=== PATIENT | male | born 1970 | race African-American/Black ===

== ENCOUNTER 2017-06-22 01:06 | Emergency (ER) | payer BC ==
[~2017-06-22 01:06] MED LIST: OXYC1TAB3 PO
[2017-06-22 01:10] VITALS: TEMP 37.2; Ht 177.8 cm
[2017-06-22] MEDS ORDERED: HYDR-5688 PO (01:31)
--- NOTE | 2017-06-22 01:34 | EMERGENCY ROOM VISIT NOTE ---
History First contact with patient: 01:13 Chief Complaint: LEG PAIN,LEG INJURY Stated Complaint: PULLED HAMSTRINGS History of Present Illness The patient is a 46 year old male who presents to the Emergency Room with complaints of possible pulled hamstrings of both legs. The patient states that he was playing kickball this afternoon and was running at home when he developed sudden cramps in both of his legs. He states that the pain was located in the back of the thighs. He states that the pain in the right leg has improved, but the pain in the left leg has worsened. He is unable to walk on the left leg. He denies any previous injuries to the leg. He denies any numbness or weakness. He rates his discomfort an 8/10. He has not taken any medication for the pain. Review of Systems A complete 10 point review of systems was reviewed with the patient with pertinent positives and negatives as per history of present illness. All else were negative. Social History Smoking Status: Never Smoker Current/Historical Medications Scheduled PRN Hydrocodone/Acetaminophen 5MG/325MG (Rialto 5MG/325MG), 1-2 TABLET PO Q4H PRN for Pain Physical Exam Vital Signs Date Time Temp Pulse Resp B/P (MAP) Pulse Ox O2 Delivery O2 Flow Rate FiO2 06/22/17 02:00 70 132/79 97 06/22/17 01:10 37.2 79 18 161/84 97 Room Air Physical Exam VITALS: Vitals are noted on the nurse's note and reviewed by myself. Vital signs stable. GENERAL: This is a 46-year-old male, in no acute distress, nondiaphoretic, well- developed well-nourished. SKIN: There is no edema or ecchymosis. MUSCULOSKELETAL: No obvious deformities. There is tenderness to palpation of the left posterior upper leg at the area of the distal hamstring insertion. Full range of motion of bilateral lower extremities. NEURO: Patient was alert and oriented to person place and time. Normal sensation to light and sharp touch. Medical Decision & Procedures Medical Decision Differential diagnosis includes muscle, torn ligament, avulsion fracture, among others. Patient was evaluated as above. He appears to have stained a left hamstring injury. He has crutches at home and will use these to aid with walking. Conservative measures were discussed with the patient including using ice and anti-inflammatories for pain. He was given orthopedic information for follow- up. He was given a short course of pain medication as the patient states that his pain was very severe. He was advised not to drink or drive with taking this medication. He verbalized understanding of my assessment and treatment plan. He was discharged home in good condition. Medication Reconcilliation Current Medication List: was personally reviewed by me Blood Pressure Screening Patient's blood pressure: Elevated blood pressure Blood pressure disposition: Elevated BP felt to be situational Impression Primary Impression: Left hamstring injury Departure Information Dispostion Home / Self-Care Condition GOOD Prescriptions Hydrocodone/Acetaminophen 5MG/325MG (Rialto 5MG/325MG) Tab 1-2 TABLET PO Q4H Y for Pain, #10 TAB For Initial Treatment Prov: Carri Hernandez, KERLINE 06/22/17 Referrals No Doctor, Assigned (PCP) Devan Mcrae, DO Patient Instructions My [facility] Additional Instructions You have been treated in the Emergency Department for leg pain. You have been prescribed Rialto to be used for pain control. This is a narcotic medication. You cannot drive or consume alcohol while on this medicine. This medicine should only be used for pain that cannot be controlled with over-the- counter pain medicines. For pain control, you can use the following pusp-ody-jdazhuk medicines (if >12 yo): - Regular strength (325mg/tab) Tylenol (acetaminophen) 2 tabs every 4-6 hours as needed. Do not exceed 12 tablets in a 24 hour period. Avoid taking more than 4 grams (4000 mg) of Tylenol per day. This includes any other sources of acetaminophen you may take on a regular basis. - Regular strength (200 mg/tab) Advil (ibuprofen) 1-2 tabs every 4-6 hours as needed. Do not exceed a dose of 3200 mg per day. If this is a recent injury (<24 hrs), ice can be applied to the area of pain for the first 3 days to help decrease pain and inflammation. Ice massages can be performed by freezing water in a paper cup, peeling back the cup to expose the ice and then massaging over the affected area. Use crutches to keep weight off the leg. Follow-up with orthopedics. Call for appointment. Return to the Emergency Department if your current symptoms worsen despite treatment course outlined above. Problem Qualifiers Primary Impression: Left hamstring injury Encounter type: initial encounter Qualified Codes: S76.302A - Unspecified injury of muscle, fascia and tendon of the posterior muscle group at thigh level , left thigh, initial encounter
[2017-06-22] MEDS ORDERED: NORCO 5/325MG HOME PACK PO ONE (01:45)
[2017-06-22 02:00] VITALS: BP 132/79; PULSE 70; O2SAT 97
--- NOTE | 2017-06-22 16:30 | Pharmacy Progress Note ---
ED Pharmacist Counseling Note Date of Service: Jun 22, 2017. Pharmacist from [facility] on [address] called regarding [place] prescription. They stated they had none in stock and I subsequently told them to cancel the prescription. The patient was discharged from the ED with a 24 hours home pack. I called the patient to acquire a new pharmacy to send the prescription to and he stated he doesn't want it filled and he is following up with his ortho physician. No further action was necessary.
== END 2017-06-22 01:55 | disposition home or self-care (01) ==
LOC: C.EDB 01:07
DX: S76.302A Unspecified injury of muscle, fascia and tendon of the posterior muscle group at thigh level, left thigh, initial encounter (principal); Y93.6A Activity, physical games generally associated with school recess, summer camp and children; X50.0XXA Overexertion from strenuous movement or load, initial encounter

== ENCOUNTER 2020-02-07 02:07 | Inpatient (IN) ==
[2020-02-07] MEDS ORDERED: NITROGLYCERIN 2% OINTMENT 30GM TUBE EXT STA (02:19)
[2020-02-07] MEDS ORDERED: FAMOTIDINE 20MG/5ML IV PUSH IV STA (02:19)
--- NOTE | 2020-02-07 02:21 | Emergency Department Note ---
History of Present Illness General Chief complaint: Chest Pain Stated complaint: CHEST PAIN Time Seen by Provider: 02/07/20 02:09 Source: patient Mode of arrival: EMS Limitations: no limitations History of Present Illness Provider complaint: Chest pain Onset (ago): hour(s) 5 Location: chest Radiation: back and neck Severity: moderate Pain Consistency: + constant Current Pain Intensity: 3 Quality: + dull and + constant Relieved By: + other Exacerbated By: + other (Lying flat) Associated symptoms: no cough, no diaphoresis, no nausea/vomiting and no shortness of breath This is a 49-year-old healthy male from home who presents after an episode of chest pain this evening. Patient states chest pain began centrally at around 9 PM. Patient states he felt well and in his usual state of health earlier in the day today. Patient denies any recent change in activity. Patient states he did play golf on Thursday did not experience any pain or discomfort at that time. Patient states only recent complaint has been pain at the right great toe since playing golf, which she attributes to arthritis. No history of gout. No recent trauma. Patient denied any accompanying symptoms including shortness of breath, diaphoresis, nausea or vomiting, or dizziness. Patient states the pain began centrally and then began to move into the right chest and out into the right shoulder. No radiation down into the right upper extremity. He did feel some right posterior shoulder discomfort with this as well and also felt as though the pain was ascending up towards his neck. Patient states lying flat made it worse and he felt improved sitting upright. Patient did not take any medications at home. Patient states he was able to fall asleep from 11 PM to midnight and then when he rolled over the pain suddenly became worse and woke him up. After while of persistent pain and unable to fall back asleep, patient called 911. EMS gave the patient aspirin and nitroglycerin in route. Patient's does state that the nitroglycerin did help, and his pain is now down to a 3. No prior history of similar chest pain. No history of heart problems in him or any family members. Patient denies any recent fevers or chills, cough or cold symptoms. Patient denies any recent contact with a known coronavirus positive individual. Pt seen during a time of high acuity and national emergency pandemic while wearing PPE. 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 and A total of 10 systems reviewed and were otherwise negative Physical Exam Vital Signs Vital Signs - 24 hr 02/07/20 02:09 02/07/20 02:30 02/07/20 03:00 Temperature 37.2 C Temperature Source Oral Pulse Rate 68 64 68 Pulse Rate from SpO2 Sensor 64 70 Pulse Rhythm Regular Pulse Strength Normal Respiratory Rate 18 20 20 Respiratory Effort / Characteristics Non-Labored Spontaneous Respiratory Depth Normal Respiratory Pattern Regular Blood Pressure 151/91 H 158/86 H 148/82 H Blood Pressure Mean 111 102 104 Blood Pressure Position Lying Pulse Oximetry 97 98 98 Oxygen Delivery Method Room Air Sepsis Recent Fever Within 48 Hours No Sepsis New/Unexplained Change in Mental Status No Sepsis Action Taken by Nursing No Action Required 02/07/20 03:30 Temperature Temperature Source Pulse Rate 71 Pulse Rate from SpO2 Sensor 70 Pulse Rhythm Pulse Strength Respiratory Rate 22 Respiratory Effort / Characteristics Respiratory Depth Respiratory Pattern Blood Pressure 155/88 H Blood Pressure Mean 102 Blood Pressure Position Pulse Oximetry 97 Oxygen Delivery Method Sepsis Recent Fever Within 48 Hours Sepsis New/Unexplained Change in Mental Status Sepsis Action Taken by Nursing GENERAL: alert, well appearing, well nourished, no distress, non-toxic EYE EXAM: normal conjunctiva, PERRL and EOM's grossly intact OROPHARYNX: no exudate, no erythema, lips, buccal mucosa, and tongue normal and mucous membranes are moist NECK: supple, no nuchal rigidity, no adenopathy, non-tender LUNGS: Clear to auscultation. Normal chest wall mechanics, no w/r/r HEART: no murmurs, S1 normal and S2 normal, mild reproducible chest wall tenderness with palpation over sternum and right chest ABDOMEN: abdomen soft, non-tender, normo-active bowel sounds, no masses, no rebound or guarding. BACK: Back is symmetrical on inspection and there is no deformity, no midline tenderness, no CVA tenderness. SKIN: no rashes and no bruising, no petechiae UPPER EXTREMITIES: upper extremities are grossly normal. FROM, nml pulses b/l. LOWER EXTREMITIES: No pitting edema. FROM, nml pulses b/l. Mild edema noted to right great toe, no erythema or increased warmth, no pain with palpation of the MTP, normal cap refill, no evidence of trauma or deformity NEURO EXAM: Normal sensorium, cranial nerves II-XII grossly intact, normal speech, no gross weakness of arms, no gross weakness of legs. Gross sensation intact. Course Course 301: Pt updated on all results. updated per request via the phone. Pt states only mild discomfort at this time, wouldn't qualify it as pain. VSS. Administered Medications Heparin Sodium/Dextrose (Heparin Sodium/Dextrose) 25,000 units in 500 mls @ 0.02 mls/hr IV .Q24H [facility]; Protocol Stop: 03/08/20 03:29 Last Admin: 02/07/20 04:11 Dose: 1,000 units/hr, 20 mls/hr Documented by: [id number] Cosigned by: [id number] Discontinued Medications Famotidine (Pepcid 20mg Iv Push) 20 mg IV ONE STA Stop: 02/07/20 02:20 Last Admin: 02/07/20 02:51 Dose: 20 mg Documented by: [id number] Heparin Sodium (Porcine) (Heparin Sodium (Porcine)) Confirm Administered Dose 5,000 units .ROUTE .STK-MED ONE Stop: 02/07/20 03:35 Last Admin: 02/07/20 04:10 Dose: 4,000 units Documented by: [id number] Cosigned by: [id number] Morphine Sulfate (Morphine Sulfate) 2 mg IV NOW STA Stop: 02/07/20 03:13 Last Admin: 02/07/20 03:21 Dose: Not Given Documented by: [id number] Nitroglycerin (Nitro-Bid 2%) 1 inch EXT NOW STA Stop: 02/07/20 02:20 Last Admin: 02/07/20 02:51 Dose: 1 inch Documented by: [id number] Critical Care Time Critical Care Time: Yes Total Critical Care Time: 38 Critical care of 38 min performed to assess and manage high likelihood of life- threatening ACS, involving labs/imaging/ekg performed with assessment to evaluate NSTEMI diagnosis with frequent reassessment. This time includes bedside time, treatment discussions with patient/family/consultants, documentation time and excludes procedure time. Medical Decision Making Differential Diagnosis Differential diagnoses includes but is not limited to acute coronary syndrome, myocardial infarction, pericarditis, pulmonary embolus, aortic dissection, pneumonia, pneumothorax, musculoskeletal, shingles, esophageal. Medical Records Attestation: I reviewed the patient's medical records. Home Medications Current Medication List: was personally reviewed by me Laboratory Data Attestation: I reviewed the patient's lab results. Result diagrams: 02/07/20 02:21 02/07/20 02:21 Lab Results 02/07/20 02/07/20 02/07/20 Range/Units 02:21 02:21 02:21 WBC 9.84 (4.8-10.8) K/uL RBC 4.84 (4.7-6.1) M/uL Hgb 15.0 (14.0-18.0) g/dL Hct 43.5 (42-52) % MCV 89.9 (80-100) fL MCH 31.0 (25-34) pg MCHC 34.5 (32-36) g/dL RDW Std Deviation 41.6 (36.4-46.3) fL RDW Coeff of Joesph 12.8 (11.5-14.5) % Plt Count 303 (130-400) K/uL MPV 10.1 (7.4-10.4) fL Immature Gran % (Auto) 0.3 % Neut % (Auto) 62.1 % Lymph % (Auto) 28.3 % Mcdonough % (Auto) 7.1 % Eos % (Auto) 2.0 % Baso % (Auto) 0.2 % Immature Gran # (Auto) 0.03 H (0.00-0.02) K/uL Neut # (Auto) 6.11 (1.4-6.5) K/uL Lymph # (Auto) 2.78 (1.2-3.4) K/uL Mcdonough # (Auto) 0.70 H (0.11-0.59) K/uL Eos # (Auto) 0.20 (0-0.5) K/uL Baso # (Auto) 0.02 (0-0.2) K/uL D-Dimer 310 (0-500) ug/L FEU Sodium 141 (136-145) mmol/L Potassium 3.7 (3.5-5.1) mmol/L Chloride 107 (98-107) mmol/L Carbon Dioxide 26 (21-32) mmol/L Anion Gap 8.0 (3-11) BUN 11 (7-18) mg/dl Creatinine 1.26 (0.6-1.4) mg/dl Est Cr Clr Drug Dosing 101.3 ml/min Est GFR ( Amer) 77.7 Est GFR (Non-Af Amer) 67.0 BUN/Creatinine Ratio 8.9 L (10-20) Glucose 160 H (70-99) mg/dl Calcium 8.2 L (8.5-10.1) mg/dl Magnesium 2.1 (1.8-2.4) mg/dl Total Bilirubin 0.4 (0.2-1) mg/dl AST 45 H (15-37) U/L ALT 121 H (12-78) U/L Alkaline Phosphatase 34 L (45-117) U/L Troponin I 0.597 H* (0-0.045) ng/ml NT-Pro-B Natriuret Pep 25 (0-450) pg/ml Total Protein 7.3 (6.4-8.2) gm/dl Albumin 3.6 (3.4-5.0) gm/dl Globulin 3.7 (2.5-4.0) gm/dl Albumin/Globulin Ratio 1.0 (0.9-2) Lipase 107 (73-393) U/L Imaging Data Attestation: I personally reviewed and interpreted this imaging study as follows: My Impression: X-ray: I interpreted the following studies. Chest: A single view study of the chest was reviewed and was negative for cardiomegaly, focal infiltrate, effusion, pulmonary edema, or wide mediastinum. ECG Data Attestation: I personally reviewed and interpreted this ECG as follows: Indication: + chest pain Rate (beats per minute): 66 Rhythm: + normal sinus ECG Intervals/blocks: + Normal QRS and + Normal QT ECG Cobb: + Normal ECG ST segments: + ST depression (V4-6) Comparison ECG Date: no prior available Blood Pressure Blood Pressure Findings: Elevated blood pressure Blood Pressure Disposition: further management by hospitalist TAWNYA Godoy An order was placed for continuous cardiac monitoring. The monitor shows a rate of 70 with normal sinus rhythm. Patient presenting due to episode of chest discomfort radiating into the right shoulder. No prior history and no known history of cardiac risk factors in him or any family members. Patient's pain was improved after EMS gave him nitroglycerin. Additional nitro paste was applied here and patient felt improved. Vital signs were stable throughout. No ectopy or dysrhythmia noted on telemetry. Patient with very subtle ST depression noted in V4 through V6 on EKG, no ST elevation. Patient already given aspirin by EMS in addition. Patient given additional Pepcid here as a precaution. Patient's other labs reassuring with the exception of an elevated troponin. Patient had no worsening or other evolving symptoms in the emergency department. He and his were made aware of all results and were in agreement with plan for additional inpatient monitoring and treatment. Case discussed with hospitalist. Heparin drip ordered. D-dimer negative and chest x-ray otherwise reassuring. I do not suspect CHF, PE, effusion, or pneumonia. Impression & Plan Acute non-ST elevation myocardial infarction (NSTEMI), Chest pain, Hyperglycemia, Hypertension Discharge Plan Visit Data *Final* Discharge Date/Time: 02/07/20 04:18 Chief Complaint: Chest Pain Stated Complaint: CHEST PAIN ED Provider: Trena Espinoza Discharge Problem: Acute non-ST elevation myocardial infarction (NSTEMI), Chest pain, Hyperglycemia, Hypertension Patient Disposition: Admitted As Inpatient Discharge Instructions Interventions: ED Discharge Assessment Last Done: 02/07/20 04:18 Discharge Problem: Chest pain Qualifiers: Chest pain type: chest pain due to myocardial ischemia Ischemic chest pain type: unspecified angina pectoris type Qualified Code(s): I25.9 - Chronic ischemic heart disease, unspecified Hypertension Qualifiers: Hypertension type: unspecified Qualified Code(s): I10 - Essential (primary) hypertension
[2020-02-07 02:33] LABS: Basophils # (auto) 0.02 K/uL (0-0.2); Basophils % (auto) 0.2 %; Hematocrit (blood only) 43.5 % (42-52); Immature Granulocytes # (auto) 0.03 K/uL (0.00-0.02); Immature Granulocytes % (auto) 0.3 %; Lymphocytes # (auto) 2.78 K/uL (1.2-3.4); Lymphocytes % (auto) 28.3 %; Mean Corpuscular Hgb Conc 34.5 g/dL (32-36); Mean Corpuscular Volume 89.9 fL (80-100); Mean Platelet Volume 10.1 fL (7.4-10.4); Monocytes % (auto) 7.1 %; Neutrophils # (auto) 6.11 K/uL (1.4-6.5); Neutrophils % (auto) 62.1 %; Platelet Count 303 K/uL (130-400); RDW Coefficient of Variation 12.8 % (11.5-14.5); RDW Standard Deviation 41.6 fL (36.4-46.3); Red Blood Count 4.84 M/uL (4.7-6.1); White Blood Count 9.84 K/uL (4.8-10.8)
[2020-02-07 02:51] LABS: Albumin Level 3.6 gm/dl (3.4-5.0); BUN Creatinine Ratio 8.9 (10-20); Calcium 8.2 mg/dl (8.5-10.1); Creatinine Clr Calc Pharmacy 101.3 ml/min; Est GFR (African American) 77.7; Magnesium 2.1 mg/dl (1.8-2.4); Potassium 3.7 mmol/L (3.5-5.1)
[2020-02-07 02:55] LABS: D Dimer 310 ug/L FEU (0-500)
[2020-02-07 03:00] LABS: Bilirubin,Total 0.4 mg/dl (0.2-1); Globulin 3.7 gm/dl (2.5-4.0); Total Protein 7.3 gm/dl (6.4-8.2); Troponin I 0.597 ng/ml (0-0.045)
[2020-02-07] MEDS ORDERED: MoRPHine SULFATE 2 MG/ML CARP IV STA (03:12)
[2020-02-07] MEDS ORDERED: Heparin IV Low Dose WITH Bolus STA (03:20)
[2020-02-07] MEDS ORDERED: HEPARIN SODIUM/DEXTROSE 25,000 UNITS/500 ML BAG IV SCH (03:30)
[2020-02-07] MEDS ORDERED: HEPARIN SOD 5,000 UNIT/0.5 ML VIAL ONE (03:34)
[2020-02-07] MEDS ORDERED: ACETAMINOPHEN 325 MG TAB PO PRN (03:43)
[2020-02-07] MEDS ORDERED: ONDANSETRON INJ 2 MG/ML 2 ML VIAL IV PRN (03:43)
[2020-02-07] MEDS ORDERED: MoRPHine SULFATE 2 MG/ML CARP IV PRN (03:43)
[2020-02-07] MEDS ORDERED: NITROGLYCERIN SL 0.4 MG/TAB TAB SL PRN ×2 (03:43→13:12)
--- NOTE | 2020-02-07 03:58 | History & Physical Report ---
Date of Service February 07, 2020 Assessment & Plan (1) Elevated troponin: Otherwise healthy 49-year-old man with no past medical history who presented to the emergency department for new onset chest pain and was found to have an elevated troponin of 0.597. 1) Elevated Troponin in setting of acute chest pain - EKG normal, low concern for acute STEMI - received heparin bolus in ED - BMP normal, d-dimer negative - initial Troponin I of 0.597. Repeats ordered for 10 am and 6 pm. - calcium borderline low at 8.2, mag normal at 2.1 - daily EKG, ASA 81 in AM - cardiology consulted - no family hx cardiac disease, no personal hx of HTN or DM2. Patient is low risk for ACS. - pericarditis/myocarditis less likely with normal CBC, lack of URI sx, lack of pericardial rub or positional pain, recent use of diclofenac BID for toe pain - lipid panel, A1c ordered for AM 2) Elevated Liver Transaminases - ALT 121, AST 45, Alk Phos 34 - incidental finding; doesn't follow alcoholic hepatitis pattern, possible nonalcoholic fatty liver disease. - unlikely Hepatitis B or C with this transaminitis pattern and no hx IVDU - follow up outpatient with PCP DVT ppx: not indicated FEN/GI: NPO with sips/ice chips Code Status: Full Code Dispo: PCU (2) Chest pain: History of Present Illness Patient is a 49-year-old male with no past medical history presenting to the emergency department this morning for acute onset chest pain. He states that approximately 10 PM last night he started to have some right-sided chest pain that radiated into his right neck and down his right arm. He thought that it was related to his back felt better after getting a massage and was able to go to sleep. At approximately 1 in the morning he rolled from his left to his right side in bed and found the chest pain to get excruciatingly worse to a 10 out of 10. Pain did not resolve on its own and at that point his called 911 for an ambulance. In the ambulance he received a nitro tab which he said helped bring the pain from a 10 out of 10 to a 6 out of 10. He describes the pain as a tight pressure in his chest that was squeezing his chest without radiation. He denies any blurry vision, headache, nausea, stomach pain that was occurring concurrently with the chest pain symptoms. He denies any recent URI symptoms, fevers, chills, sick contacts. He notes that he went golfing on Thursday and walked 9 miles without any shortness of breath or chest pain with the exertion. He has never had any episodes like this previously denies any family history of heart attack, stroke, heart failure, hypertension, diabetes. He de nies having ever smoked or having ever used any IV drugs. He states that his alcohol use is sporadic but probably averages to a couple of beers 3 times a month. 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 Social History Preferred Language: Norwegian Communication Ability: Effective Beliefs That Will Affect Care: None marital status: Current Living Situation: Spouse current occupational status: employed Other Information That Helps Us Care for You: No Feels Safe at Home: Yes Smoking Status: Never smoker Hx Alcohol Use: Yes Alcohol type: beer Hx Substance Use: No Review of Systems Constitutional: no fever, no chills, no fatigue and no weakness Eyes: no eye pain and no worsening vision Respiratory: no cough, no dyspnea, no dyspnea on exertion and no pain on inspiration Cardiovascular: + chest pain; no chest pain with activity, no radiating jaw, neck or arm pain, no dyspnea at rest, no palpitations and no lightheadedness Gastrointestinal: no heartburn, no nausea, no vomiting, no change in stools, no constipation and no diarrhea/loose stools Neurologic: + headache(s); no dizziness Physical Exam Constitutional: well developed, well nourished and + obese; no acute distress Eyes: PERRL, conjunctivae normal, anicteric sclerae ENMT: external ear and nose normal, oropharynx normal Respiratory: normal respiratory effort, lungs clear to auscultation normal respiratory effort; no respiratory distress Auscultation: no crackles, no rales, no rhonchi and no wheezes Cardiovascular: RRR, no murmur, no edema Heart Sounds: no gallop and no murmur Extremities: normal capillary refill; no edema Gastrointestinal (Abdomen): Inspection/Auscultation: abdomen normal to inspection; abdomen not distended Percussion/Palpation: abdomen soft; abdomen nontender Skin: no rashes, warm and dry Results & Data Results & Data ([facility]) Vital Signs (Past 12 Hours) Vital Signs Temp Pulse Resp BP Pulse Ox 02/07/20 02:09 37.2 C 68 18 151/91 H 97 Laboratory Results WBC 9.84 K/uL (4.8-10.8) 02/07/20 02:21 RBC 4.84 M/uL (4.7-6.1) 02/07/20 02:21 Hgb 15.0 g/dL (14.0-18.0) 02/07/20 02:21 Hct 43.5 % (42-52) 02/07/20 02:21 MCV 89.9 fL (80-100) 02/07/20 02:21 MCH 31.0 pg (25-34) 02/07/20 02:21 MCHC 34.5 g/dL (32-36) 02/07/20 02:21 RDW Std Deviation 41.6 fL (36.4-46.3) 02/07/20 02:21 RDW Coeff of Joesph 12.8 % (11.5-14.5) 02/07/20 02:21 Plt Count 303 K/uL (130-400) 02/07/20 02:21 MPV 10.1 fL (7.4-10.4) 02/07/20 02:21 Immature Gran % (Auto) 0.3 % 02/07/20 02:21 Neut % (Auto) 62.1 % 02/07/20 02:21 Lymph % (Auto) 28.3 % 02/07/20 02:21 [place] % (Auto) 7.1 % 02/07/20 02:21 Eos % (Auto) 2.0 % 02/07/20 02:21 Baso % (Auto) 0.2 % 02/07/20 02:21 Immature Gran # (Auto) 0.03 K/uL (0.00-0.02) H 02/07/20 02:21 Neut # (Auto) 6.11 K/uL (1.4-6.5) 02/07/20 02:21 Lymph # (Auto) 2.78 K/uL (1.2-3.4) 02/07/20 02:21 [place] # (Auto) 0.70 K/uL (0.11-0.59) H 02/07/20 02:21 Eos # (Auto) 0.20 K/uL (0-0.5) 02/07/20 02:21 Baso # (Auto) 0.02 K/uL (0-0.2) 02/07/20 02:21 D-Dimer 310 ug/L FEU (0-500) 02/07/20 02:21 Sodium 141 mmol/L (136-145) 02/07/20 02:21 Potassium 3.7 mmol/L (3.5-5.1) 02/07/20 02:21 Chloride 107 mmol/L (98-107) 02/07/20 02:21 Carbon Dioxide 26 mmol/L (21-32) 02/07/20 02:21 Anion Gap 8.0 (3-11) 02/07/20 02:21 BUN 11 mg/dl (7-18) 02/07/20 02:21 Creatinine 1.26 mg/dl (0.6-1.4) 02/07/20 02:21 Est Cr Clr Drug Dosing 101.3 ml/min 02/07/20 02:21 Est GFR ( Amer) 77.7 02/07/20 02:21 Est GFR (Non-Af Amer) 67.0 02/07/20 02:21 BUN/Creatinine Ratio 8.9 (10-20) L 02/07/20 02:21 Glucose 160 mg/dl (70-99) H 02/07/20 02:21 Calcium 8.2 mg/dl (8.5-10.1) L 02/07/20 02:21 Magnesium 2.1 mg/dl (1.8-2.4) 02/07/20 02:21 Total Bilirubin 0.4 mg/dl (0.2-1) 02/07/20 02:21 AST 45 U/L (15-37) H 02/07/20 02:21 ALT 121 U/L (12-78) H 02/07/20 02:21 Alkaline Phosphatase 34 U/L (45-117) L 02/07/20 02:21 Troponin I 0.597 ng/ml (0-0.045) H* 02/07/20 02:21 NT-Pro-B Natriuret Pep 25 pg/ml (0-450) 02/07/20 02:21 Total Protein 7.3 gm/dl (6.4-8.2) 02/07/20 02:21 Albumin 3.6 gm/dl (3.4-5.0) 02/07/20 02:21 Globulin 3.7 gm/dl (2.5-4.0) 02/07/20 02:21 Albumin/Globulin Ratio 1.0 (0.9-2) 02/07/20 02:21 Lipase 107 U/L (73-393) 02/07/20 02:21 Supervising Physician Co-Signing Physician Notes Attending addendum: I have physically seen this patient, have supervised the medical residents activities, and agree with the H&P unless as otherwise noted. Assessment and Plan: Non-STEMI- The patient will be admitted to telemetry for serial cardiac enzymes, serial EKG's, cardiac rhythm monitoring and a 2-D echocardiogram with Dopplers. Heparin drip standard concentration per protocol. Aspirin 81 mg daily, verify received 324 in ED. Tobacco use history. Over risk factors include obesity, tobacco use, and recent more sedentary lifestyle due to COVID pandemic. Order a fasting lipid panel and hemoglobin A1c for risk stratification. Consult cardiology. Abnormal LFTs- Follow-up ultrasound. Most likely AGUILAR or NAFLD. Repeat laboratories in a.m. Remainder of orders and notations as noted. Resident Activity Tracking Resident Involvement: Resident Care Provided Care Provided: Adult Hospital Medicine
[2020-02-07 05:50] LABS: Partial Thromboplastin Time 27.6 Seconds (21.0-31.0); Prothrombin Time 10.8 Seconds (9.0-12.0)
--- NOTE | 2020-02-07 06:58 | XRay Report ---
XR chest 1V portable CLINICAL HISTORY: 49 years-old Male presenting with midsternal chest pain. TECHNIQUE: Portable upright AP view of the chest was obtained. COMPARISON: None. FINDINGS: Cardiomediastinal silhouette normal. No focal opacity. No large effusion or pneumothorax. Degenerativ e changes of the thoracic spine. Upper abdomen normal. IMPRESSION: 1. No acute cardiopulmonary disease. ACT 112: Negative or not required by law. Electronically signed by: Polo Mancini M.D. 02/07/2020 6:56 AM
[2020-02-07] MEDS: ASPIRIN 81 MG ECTAB PO SCH (08:16)
[2020-02-07 08:54] LABS: Estimated Average Glucose 108 mg/dl; Hemoglobin A1C 5.4 % (4.5-5.6)
[2020-02-07 10:25] LABS: Partial Thromboplastin Ratio 1.3; Partial Thromboplastin Time 35.6 Seconds (21.0-31.0)
[2020-02-07] MEDS ORDERED: PERFLUTREN LIPID MICROSPHERE (DEFINITY) IV ONE (10:57)
--- NOTE | 2020-02-07 11:06 | Cardiology Consultation ---
Date of Consultation February 07, 2020 Assessment & Plan (1) Acute non-ST elevation myocardial infarction (NSTEMI): (2) Hypertension: ASSESSMENT/PLAN: 1. Acute NSTEMI: Currently, no angina. Troponin up to 3.35 but not yet peaked. Echocardiogram ordered to be done prior to cardiac catheterization. Cardiac catheterization recommended. Risks and benefits discussed with him. He was made aware that CT surgery is not available at this facility. He was agreeable to undergo diagnostic cardiac catheterization and PCI, if deemed appropriate. Continue aspirin 81 mg daily. Continue heparin drip. Transaminase levels are slightly elevated but would recommend high-intensity statin therapy. Lipitor 40 mg once daily initiated at this time. Metoprolol 25 mg twice daily ordered. Will also consider BALDO-inhibitor to be started tomorrow if blood pressure okay. 2. Hypertension: No formal diagnosis of hypertension blood pressure has been mostly elevated here. Beta-taras as above. Would also recommend BALDO- inhibitor during this hospitalization if blood pressure can tolerate. 3. Disposition: Cardiac catheterization recommended to be done today. Recommend cardiac rehab on discharge. Cardiology will continue to follow. Dr. Lyons made aware of current plan. Highly complex medical issues. Thank you for allowing me to participate in the care of your patient. Please call for any other questions or concerns. Sincerely, Nelson Guzmán M.D. History of Present Illness Reason for Consultation: NSTEMI Requesting Physician: Dr. Dumont Attending Physician: David Lyons DO History of Present Illness Mr. Hill is a very pleasant 49-year-old gentleman without significant past medical history who presented to [facility] due to chest discomfort. He was admitted on 02/07/2020. He describes himself as active and had been exercising up until the momin virus pandemic. He did play golf 2 days ago and he walks while doing such. He was completely asymptomatic during this activity. Then last night while laying in bed at approximately 9:00 p.m., he developed substernal chest pressure that persisted for approximately 2 hours. He eventually fell asleep only to wake up at 12:17 a.m. with the same chest discomfort. It felt as though someone was pushing on his chest. It radiated to his neck, jaw, and somewhat into his right shoulder. There is no associated shortness of breath or diaphoresis his called EMS and he received nitroglycerin in route to the hospital. This helped improve his pain. The pain eventually resolved in the emergency department and has not recurred. He denies shortness of breath, syncope, near-syncope, palpitations, edema, or bleeding such as melena, hematochezia, or hematuria. He had not experienced any symptoms like this in the past. His reports that on Thursday and Thursday he seemed more tired. He thinks that he was more bored. He had no anginal symptoms those days. He is currently asymptomatic without chest discomfort. He was seen earlier this morning. Review of systems: As above. Review of systems otherwise negative/unremarkable. Family history: No known premature CAD. Social history: He denies smoking. Occasional alcohol. No drugs. He lives at home with his , Ms. Luis, and 2 daughters. 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 He is originally from the [place] [facility]. He is unaccompanied. 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 Alert and oriented. HEENT: Anicteric sclera. Neck: No JVD. No bruits. Normal carotid upstrokes bilaterally. Cardiac: PMI was nondisplaced. No ventricular heave. Regular rate and rhythm. Normal S1-S2. No murmurs, rubs, or gallops. Pulmonary: Clear to auscultation bilaterally without wheezes, rales, or rhonchi. Abdomen: Soft, nontender, nondistended, with normoactive bowel sounds. No bruits noted. Extremities: 2+ radial pulses bilaterally. 2+ right femoral pulse without bruit. 2+ posterior tibialis pulses bilaterally. No edema or cyanosis. Psychiatric: Affect appears appropriate. Chest: Nontender to palpation. Results & Data ([facility]) Vital Signs (Past 12 Hours) Vital Signs Temp Pulse Pulse Resp BP BP Pulse Ox 02/07/20 10:30 70 20 114/67 95 02/07/20 09:32 65 02/07/20 07:43 36.6 C 68 20 108/65 96 02/07/20 05:23 67 02/07/20 05:00 36.7 C 64 18 164/90 H 99 02/07/20 04:00 68 19 134/83 96 02/07/20 03:30 71 22 155/88 H 97 02/07/20 03:00 68 20 148/82 H 98 02/07/20 02:30 64 20 158/86 H 98 02/07/20 02:09 37.2 C 68 18 151/91 H 97 Laboratory Results Laboratory Results - last 24 hr 02/07/20 02/07/20 02/07/20 02:21 02:21 02:21 WBC 9.84 RBC 4.84 Hgb 15.0 Hct 43.5 MCV 89.9 MCH 31.0 MCHC 34.5 RDW Std Deviation 41.6 RDW Coeff of Joesph 12.8 Plt Count 303 MPV 10.1 Immature Gran % (Auto) 0.3 Neut % (Auto) 62.1 Lymph % (Auto) 28.3 [place] % (Auto) 7.1 Eos % (Auto) 2.0 Baso % (Auto) 0.2 Immature Gran # (Auto) 0.03 H Neut # (Auto) 6.11 Lymph # (Auto) 2.78 [place] # (Auto) 0.70 H Eos # (Auto) 0.20 Baso # (Auto) 0.02 PT INR APTT PTT Ratio D-Dimer 310 Sodium 141 Potassium 3.7 Chloride 107 Carbon Dioxide 26 Anion Gap 8.0 BUN 11 Creatinine 1.26 Est Cr Clr Drug Dosing 101.3 Est GFR ( Amer) 77.7 Est GFR (Non-Af Amer) 67.0 BUN/Creatinine Ratio 8.9 L Glucose 160 H Estimat Average Glucose Hemoglobin A1c Calcium 8.2 L Magnesium 2.1 Total Bilirubin 0.4 AST 45 H ALT 121 H Alkaline Phosphatase 34 L Troponin I 0.597 H* NT-Pro-B Natriuret Pep 25 Total Protein 7.3 Albumin 3.6 Globulin 3.7 Albumin/Globulin Ratio 1.0 Lipase 107 02/07/20 02/07/20 02/07/20 02:21 05:29 10:05 WBC RBC Hgb Hct MCV MCH MCHC RDW Std Deviation RDW Coeff of Joesph Plt Count MPV Immature Gran % (Auto) Neut % (Auto) Lymph % (Auto) [place] % (Auto) Eos % (Auto) Baso % (Auto) Immature Gran # (Auto) Neut # (Auto) Lymph # (Auto) [place] # (Auto) Eos # (Auto) Baso # (Auto) PT 10.8 INR 1.0 APTT 27.6 PTT Ratio 1.0 D-Dimer Sodium Potassium Chloride Carbon Dioxide Anion Gap BUN Creatinine Est Cr Clr Drug Dosing Est GFR ( Amer) Est GFR (Non-Af Amer) BUN/Creatinine Ratio Glucose Estimat Average Glucose 108 Hemoglobin A1c 5.4 Calcium Magnesium Total Bilirubin AST ALT Alkaline Phosphatase Troponin I 3.350 H* NT-Pro-B Natriuret Pep Total Protein Albumin Globulin Albumin/Globulin Ratio Lipase 02/07/20 10:05 WBC RBC Hgb Hct MCV MCH MCHC RDW Std Deviation RDW Coeff of Joesph Plt Count MPV Immature Gran % (Auto) Neut % (Auto) Lymph % (Auto) [place] % (Auto) Eos % (Auto) Baso % (Auto) Immature Gran # (Auto) Neut # (Auto) Lymph # (Auto) [place] # (Auto) Eos # (Auto) Baso # (Auto) PT INR APTT 35.6 H PTT Ratio 1.3 D-Dimer Sodium Potassium Chloride Carbon Dioxide Anion Gap BUN Creatinine Est Cr Clr Drug Dosing Est GFR ( Amer) Est GFR (Non-Af Amer) BUN/Creatinine Ratio Glucose Estimat Average Glucose Hemoglobin A1c Calcium Magnesium Total Bilirubin AST ALT Alkaline Phosphatase Troponin I NT-Pro-B Natriuret Pep Total Protein Albumin Globulin Albumin/Globulin Ratio Lipase Diagnostic Findings Telemetry personally reviewed: Sinus rhythm. No arrhythmia. ECGs personally reviewed: ECG 02/07/2020 at 2:10 a.m.: NSR [address] abnormality in the anterolateral leads. ECG 02/07/2020 at 8:06 a.m.: NSR 66 bpm. Nonspecific T-wave abnormality in the anterolateral leads. Chest x-ray 02/07/2020: No acute cardiopulmonary process per Radiology. Medications Administered Current Inpatient Medications Acetaminophen (Tylenol) 650 mg PO Q4H PRN PRN Reason: Pain or Fever Stop: 03/08/20 03:42 Last Admin: 02/07/20 08:18 Dose: 650 mg Documented by: Aspirin (Ecotrin Ectab) 81 mg PO QAM [facility] Stop: 03/08/20 08:59 Last Admin: 02/07/20 08:16 Dose: 81 mg Documented by: Heparin Sodium/Dextrose () 1 ea IV Q15M [facility] Stop: 02/07/20 14:15 Heparin Sodium/Dextrose (Heparin Sodium/Dextrose) 25,000 units in 500 mls @ 20 mls/hr IV .Q24H [facility]; Protocol Stop: 03/08/20 03:29 Last Titration: 02/07/20 06:53 Dose: 1,000 units/hr, 20 mls/hr Documented by: Morphine Sulfate (Morphine Sulfate) 2 mg IV Q30M PRN PRN Reason: Chest Pain Stop: 02/21/20 03:42 Nitroglycerin (Nitrostat) 0.4 mg SL UD PRN PRN Reason: Chest Pain Stop: 03/08/20 03:42 Ondansetron HCl (Zofran) 4 mg IV Q6H PRN PRN Reason: Nausea Stop: 03/08/20 03:42 PG Care Time/CCT Total # of Minutes Spent Total Time Spent with Patient: Total time spent is greater than 50% in coordination of care (as documented) at patient's floor/unit and/or counseling patient: Coding Level of Care Code 29456 Inpt Consult Level 5 Diagnoses Acute non-ST elevation myocardial infarction (NSTEMI) I21.4 Hypertension I10 Hypertension type: unspecified (1) Hypertension Hypertension type: unspecified Qualified Code(s): I10 - Essential (primary) hypertension
--- NOTE | 2020-02-07 11:09 | Pre Anesthesia Assessment ---
Date of Service February 07, 2020 Pre Sedation Assessment Vital Signs Temp Pulse Pulse Resp BP BP Pulse Ox 02/07/20 10:30 70 20 114/67 95 02/07/20 09:32 65 02/07/20 07:43 36.6 C 68 20 108/65 96 02/07/20 05:23 67 02/07/20 05:00 36.7 C 64 18 164/90 H 99 02/07/20 04:00 68 19 134/83 96 02/07/20 03:30 71 22 155/88 H 97 02/07/20 03:00 68 20 148/82 H 98 02/07/20 02:30 64 20 158/86 H 98 02/07/20 02:09 37.2 C 68 18 151/91 H 97 Cardiovascular RRR, no murmur, no edema Respiratory normal respiratory effort, lungs clear to auscultation Pre-Sedation Airway Assessment Smoking Status: Never smoker Hx Sleep Apnea: No Short, Thick Neck: No Thyromental Distance: > or= 3.5 Finger Breadths Oral Cavity: + WNL Mallampati Class: II ASA: ASA3 NPO Status Date of Last Intake of Fluids: 02/07/20 Time of Last Intake of Fluids: 07:00 Date of Last Intake of Solid Food: 02/06/20 Time of Last Intake of Solid Foods: 19:00 Procedure Planning Contraindications for Sedation: none Current Medications Reviewed: Yes Notes The planned sedation has been discussed with the patient. Informed Consent was obtained. I have identified the patient, determined the appropriateness of sedation and have assessed the patient immediately prior to the procedure. All medicine(s) and interventions are by my order.
[2020-02-07] MEDS ORDERED: fentaNYL citrate 100 MCG/2 ML VIAL ONE ×2 (11:10→12:41)
[2020-02-07] MEDS ORDERED: NiCARDipine HCL INJ 2.5 MG/ML 10 ML AMP ONE (11:10)
[2020-02-07] MEDS ORDERED: MIDAZOLAM HCL 1 MG/ML 2ML VIAL ONE ×3 (11:10→12:41)
[2020-02-07] MEDS ORDERED: HEPARIN (PORCINE) 1000 UNIT/ML 10 ML (CATH LAB USE ONLY) ONE ×2 (11:10→12:23)
[2020-02-07] MEDS ORDERED: NITROGLYCERIN/D5W 100MCG/ML 20ML SYR ONE (11:11)
--- NOTE | 2020-02-07 12:17 | Cardiac Catheterization ---
[facility] Data: Stick Roller Cardiac Status Clinical evaluation leading to the procedure CAD Presenation: Non STEMI Anginal Classification: CCS IV Heart Failure: No Cardiogenic Shock within 24 Hours: No Cardiac Arrest within 24 Hours: No Imaging Studies Past 6 Months: Yes Stress Studies Past 6 Months: No Standard Exercise Test: No Stress Echocardiogram: No Stress Testing w/SPECT MPI: No Cardiac CTA: No Coronary Anatomy Dominant: Right Left Ventricular Angiography EF (%): n/a Diagnostic Physicians Name: Jorge A Guzmán MD Status: Elective Closure Device Percutaneous Entry Location: Radial Closure Device: Radial Band (after PCI) Recommendations: PCI without planned CABG Cardiac Cath Procedure Full Procedure Date February 07, 2020 Pre-Procedure Diagnosis Pre-Procedure Diagnosis: Non STEMI AUC Score AUC Score: 9 Post-Procedure Diagnosis Post-Procedure Diagnosis: Severe CAD and Normal Intracardiac Pressures Procedure(s) Performed Procedure(s) Performed: Coronary Angiography and Left Heart Cath Rn Birthing Jorge A Guzmán MD Retail Sales Merchandiser Development(s) Micah Gudino Estimated Blood Loss Estimated Blood Loss: < 25 ml Medication(s) Medication(s): Fentanyl, Heparin, Lidocaine 1%, Nicardipine and Versed Summary of Findings Procedures: 1. Coronary angiography 2. Left heart catheterization 3. Moderate sedation Coronary angiography: 1. Left main coronary artery: LMCA is large in caliber. Mid LMCA 20%. 2. Left anterior descending: LAD is a large-caliber vessel that extends to the apex. Early mid LAD 90-95% stenosis, involving small D1 ostium. RO-3 flow. Medium caliber D2 and small-caliber D3. 3. Circumflex: The circumflex is a large-caliber vessel. Mid circumflex 20 to 30%. Distal circumflex 70% stenosis. Small OM1 and large OM 2 with large lateral branch. 4. Right coronary artery: The RCA is large and dominant. Mid and distal RCA with diffuse luminal irregularities 20 to 30%. PDA and PL branches without significant CAD. Left heart catheterization: 1. Left ventriculography was not performed. 2. No significant aortic stenosis. 3. Normal LVEDP; 8 mmHg. Moderate sedation: 1. Sedation start time: 11:34 AM 2. Sedation end time: 11:51 AM Impression: 1. Severe CAD involving the mid LAD and distal circumflex. 2. Mid LAD likely culprit vessel for his end STEMI. 3. Otherwise, non-obstructive CAD. 4. No significant aortic stenosis. 5. Normal left-sided filling pressure. 6. No significant aortic stenosis. Plan: 1. Dr. Matute of interventional cardiology was asked to evaluate images. He plans to perform PCI of LAD. 2. Optimize medical therapy. Hemodynamics Rest Ao:: 107/65 Final Ao: 109/67 LV: 109/0/8 Recommendations Recommendations: PCI without planned CABG Specimens Specimens: None Radiation Exposure (mGy) 1177 mGy. Fluoro time 5 min. 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 Any exceptions are noted below. [facility] Card Cath Procedure Codes Cardiac Catheterization Procedure 1: Cardiovascular Cath Procedures: 43092 Coronaries and LHC (+/-LV) Moderate Sedation Procedure 1: Sedation/Anesthesia: 16888 Mod Sedation by the same physician;Init15 Min Child Age 5 & Up Procedure 2: Sedation/Anesthesia: 83149 Mod Sedation by the same physician; Ea [id number] Minutes PG Care Time/CCT Total # of Minutes Spent Total Time Spent with Patient: Total time spent is greater than 50% in coordination of care (as documented) at patient's floor/unit and/or counseling patient:
[2020-02-07] MEDS ORDERED: TICAGRELOR 90 MG TAB PO ONE (13:02)
--- NOTE | 2020-02-07 13:10 | Post Anesthesia Assessment ---
Date of Service February 07, 2020 Post Sedation Assessment Vital Signs Temp Pulse Pulse Resp BP BP Pulse Ox 02/07/20 10:30 70 20 114/67 95 02/07/20 09:32 65 02/07/20 07:43 97.9 F 68 20 108/65 96 02/07/20 05:23 67 02/07/20 05:00 98.1 F 64 18 164/90 H 99 02/07/20 04:00 68 19 134/83 96 02/07/20 03:30 71 22 155/88 H 97 02/07/20 03:00 68 20 148/82 H 98 02/07/20 02:30 64 20 158/86 H 98 02/07/20 02:09 99.0 F 68 18 151/91 H 97 Recovery Score Activity: Moves 4 extremities Respiration: Deep Breath/Cough Circulation: +/-20% PreAnes Value Consciousness: Fully Awake Oxygen Saturation: O2 needed for >90% Discharge Sedation Level of Care: Fast Track Phase II Post Sedation Plan On clinical assessment, the patient appears to have tolerated the sedation without complications. Patient is recovering as anticipated. Patient will continue to be monitored by nursing and may be discharged when sedation discharge criteria are met per below protocol. Upon Completions of procedure up to 15 minutes continue every 5 minute vital signs and the P.A.R. score; then discharge to a Phase I or Fast Track to Phase II per the following guidelines: * Discharge Patient to appropriate Phase II area if PAR is 8 or greater or return to pre- procedure baseline. The post - procedure orders will be as directed. * If PAR score is less than 8 or not return to pre-procedure baseline then patient will follow Phase I monitoring till PAR is reached for Phase II. The Phase I may be done in procedure room or may call to secure a Phase I area. * If naloxone or flumazenil are used for reversal, hold in Phase I for continued monitoring from when last reversal dose was given for a minimum of 60 minutes or longer pending the nurse and/or physician discretion of patient condition before discharge to Phase II. Please call the Sedation Physician to re-evaluate and complete post-note for discharge to Phase II area. Do NOT discharge from procedure sedation or Phase 1 until post- sedation evaluation note is complete by procedure /sedation MD Sedation Discharge Instructions to be given to the patient at discharge to home.
--- NOTE | 2020-02-07 13:12 | Post Operative Brief Note ---
Cardiology Brief Post Op Date of Surgery February 07, 2020 Pre & Post Diagnosis NSTEMI, Coronary artery disease Procedure -- Travel Administrator Rangel Matute MD Registration Clerk [place] Estimated Blood Loss 10 Findings Consistent with Post-Op Diagnosis 1. Successful PCI of proximal to mid LAD (4.0 x 34 mm [place]; post-dilated with 4.5 NC). 2. Successful PCI of distal circumflex with (2.25 x 18 mm Naresh) Anesthesia Type RN Sedation Complications none Disposition Disposition: PCU
[2020-02-07] MEDS ORDERED: SODIUM CHLORIDE 0.9% 1000ML 1,000 ML IV SCH (13:15)
[2020-02-07] MEDS: Heparin IV Low Dose *NO* Bolus IV SCH ×4 (14:15→16:02)
[2020-02-07] MEDS: METOPROLOL TARTRATE 25 MG TAB PO SCH ×2 (14:48→20:48)
--- NOTE | 2020-02-07 16:46 | Cardiac Catheterization ---
ACC Data: Legal Entity Controller Cardiac Status Clinical evaluation leading to the procedure CAD Presenation: Non STEMI Anginal Classification: CCS IV Heart Failure: No Cardiogenic Shock within 24 Hours: No Cardiac Arrest within 24 Hours: No Imaging Studies Past 6 Months: No Stress Studies Past 6 Months: No Diagnostic Physicians Name: Rangel Matute MD Status: Elective Closure Device Percutaneous Entry Location: Radial Closure Device: Radial Band Recommendations: PCI without planned CABG PCI Indication: PCI for high risk Non-LEATHA Lesion Segment Name: Mid LAD Culprit Artery: Yes Stenosis Prior to Rx (%): 95 Chronic Total Occlusion: No IVUS: Yes FFR: No Pre-Procedure RO Flow: 2 Previously Treated Lesion: No Lesion Complexity: Non-High/Non-C Lesion Length (mm): 25 Thrombus Present: Yes Bifurcation Lesion: Yes Guidewire Across Lesion: Stenosis Post-Procedure (%): 0 Post-Procedure RO Flow: 3 Devices(s) Deployed: Yes Yes Lesion #2 Segment Name: Distal circumflex Culprit Artery: No Stenosis Prior to Rx (%): 70 Chronic Total Occlusion: No IVUS: No FFR: No Pre-Procedure RO Flow: 3 Previously Treated Lesion: No Lesion Complexity: Non-High/Non-C Lesion Length (mm): 15 Thrombus Present: No Bifurcation Lesion: No Guidewire Across Lesion: Yes Stenosis Post-Procedure (%): 0 Post-Procedure RO Flow: 3 Devices(s) Deployed: Yes Intraprocedure Events Significant Disection: No Perforation: No Cardiac Cath Procedure Full Procedure Date February 07, 2020 Pre-Procedure Diagnosis Pre-Procedure Diagnosis: Non STEMI AUC Score AUC Score: 9 Post-Procedure Diagnosis Post-Procedure Diagnosis: Severe CAD and Successful PCI Procedure(s) Performed Procedure(s) Performed: Coronary Angiography, Left Heart Cath, Drug Eluting Stent and IVUS Dowel Machine Operator Rangel Matute MD Rn Gyn(s) Micah Gudino Estimated Blood Loss Estimated Blood Loss: < 25 ml Medication(s) Medication(s): Fentanyl, Heparin, Lidocaine 1%, Nicardipine, Nitroglycerin and Versed Medication(s): Ticagrelor Summary of Findings Indication: High risk NSTEMI Access: 6Fr slender right radial artery Catheters: EBU 3.5 guide Findings: For full details of patient's coronary angiography please see cath report dictated by Dr. Guzmán. Briefly, patient found to have multi-vessel disease including a 95 % stenosis involving his earlymid LAD and a 70% stenosis involving his distal circumflex. Decision to proceed with PCI. -- PCI -- Antithrombotic therapy: Heparin, ticagrelor Procedure: Left main cannulated with EBU 3.5 guide Central Supply Supervisor 50 wire passed across lesion into distal vessel Mid LAD lesion predilated with 2.5 compliant balloon IVUS used to assess extent of disease, length of disease segment and degree of calcification. Circumferential calcium proximally, minimally calcified disease extending into Dilated lesion stented with 4.0 x 34 mm [place] drug-eluting stent Central Supply Supervisor 50 wire placed into first diagonal Stent post-dilated with 4.5 noncompliant balloon Repeat IVUS showed well-expanded, well-apposed stent IC vasodilators administered for spasm Post procedure RO 3 flow, stent well expanded with minimal residual stenosis. Residual ostial stenosis in small first diagonal. Central Supply Supervisor 50 wire removed and placed into distal PLB Distal circumflex stented with 2.25 x 18 mm Naresh drug-eluting stent Stent postdilated with stent balloon Post procedure RO-3 flow and stent well expanded with minimal residual stenosis. Arterial Closure: TR band Summary: 1. Successful PCI of proximal to mid LAD with single drug-eluting stent (4.0 x 34 mm [place]; postdilated with 4.5 NC). 2. Successful PCI of distal circumflex with single drug-eluting stent (2.25 x 18 mm Naresh) Recommendations: To PCU for continued monitoring Loaded with ticagrelor 180 mg in Legal Entity Controller Continue dual-antiplatelet therapy for at least 1 year Continue statin, and ASCVD risk factor modification Consult cardiac Rehab Hemodynamics Rest Ao:: 121/63/83 Final Ao: 114/69/89 LV: -- Recommendations Recommendations: PCI without planned CABG Specimens Specimens: None Radiation Exposure (mGy) 4188 Contrast (mls) 155 Fluids (cc crystalloids) Fluids (cc crystalloids): 177 Drains Drains: None Anesthesia Moderate Procedural Complication(s) None Disposition PCU I attest to the content of the Intraoperative Record and any orders documented therein. Any exceptions are noted below. [facility] Card Cath Procedure Codes Therapeutic Services & Ancillary Proc Procedure 1: Cardiovascular Tx and Anc Procedures: 60935 IV Ultrasound (Coronary or Graft) Moderate Sedation Procedure 1: Sedation/Anesthesia: 68390 Mod Sedation by a different physician ;Init15 Min Child Age 5&Up Procedure 2: Sedation/Anesthesia: 70337 Mod Sedation by a different physician;Ea Additional 15 Minutes Stenting Procedure 1: Cardiovascular Stent Procedures: 03282 Perc transcatheter placement of intracoronary stent(s), with ang Procedure 2: Cardiovascular Stent Procedures: 41647 Ea addl branch of a major coronary artery PG Care Time/CCT Total # of Minutes Spent Total Time Spent with Patient: Total time spent is greater than 50% in coordination of care (as documented) at patient's floor/unit and/or counseling patient:
[2020-02-07] MEDS ORDERED: ACETAMINOPHEN 500 MG TAB PO PRN (16:57)
[2020-02-07] MEDS ORDERED: ONDANSETRON 4 MG OD TAB PO PRN (16:59)
[2020-02-07] MEDS ORDERED: ACETAMINOPHEN 500 MG TAB PO ONE (17:02)
--- NOTE | 2020-02-07 17:30 | XCELERA ---
[id number]
--- NOTE | 2020-02-07 17:30 | Hospitalist Progress Note ---
Date of Service February 07, 2020 Assessment & Plan (1) Acute non-ST elevation myocardial infarction (NSTEMI): 49-year-old male with no significant past medical history presents with chest pain, found to have NSTEMI, status post PCI with drug-eluting stent placement. Acute NSTEMI PCI of proximal to mid LAD with drug-eluting stent Will require DAPT for at least 1 year Continue Brilinta 90 mg twice daily, aspirin 81 mg, Lipitor 40 mg, Lopressor 25 mg twice daily Discussed lifestyle interventionstobacco cessation (chewing tobacco), low carb/Mediterranean diet, sustained aerobic activity Reviewed outpatient recordsmildly elevated LDL at 120 otherwise fairly normal lipid panel A1c within normal limits We will arrange outpatient follow-up with [facility] Tobacco cessation Begin discussions regarding quitting Reviewed past records, has used Wellbutrin in the past, will continue discussion tomorrow Giving Tylenol and Zofran for headache, likely secondary to nitro versus nicotine withdrawal DVT prophylaxiswas heparinized this morning, encourage ambulation Dietheart healthy (2) Chest pain: (3) Elevated troponin: (4) Hypertension: Admission and Anticipated Discharge Date Admission Date: February 07, 2020 Supervising Physician Co-Signing Physician Notes I personally examined the patient and verified all brooke points of history and exam, discussed case, and agree with decision making with Dr Jameson. feeling good post cath. discussed eating and exercise. overall sounds that he does pretty well - could maybe prioritize cardio as exercise. also chews tobacco. vitals noted nad heent nc at mmm breathing unlabored no accessory muscles good effort skin no rashes no pallor or icterus CAD/NSTEMI -risks - male, age, tobacco abuse; lipids pending -lifestyle - eating overall seems pretty good - maybe could emphasize a little more fruits/vegetables and little less red meat; exercise does quite well overall but not a lot in terms of 20+ mins of cardio - could work to increase this; definitely needs to quit tobacco - relates was on a med ~7-8yrs ago that helped -- dr jameson will review [facility] charts to determine what otherwise med management, doing well, hopefully home in short order Subjective 49-year-old male status post PCI doing well. Denies any chest pain, shortness of breath. He is endorsing a significant headache. Denies any past medical history. Reports that he has been a tobacco user for years has tried to quit in the past. Was successful for 2 years while taking Wellbutrin. Review of Systems Review of Systems: All systems reviewed & are unremarkable except as noted in HPI & below Physical Exam Constitutional: WD/WN, vitals as above Eyes: PERRL, conjunctivae normal, anicteric sclerae ENMT: Ears: no hearing impairment Nose: no external nose abnormality and no nasal discharge Mouth: no lip abnormality Neck: trachea midline, no thyromegaly Cardiovascular: Extremities: no edema Musculoskeletal: Head/Neck/Chest: normocephalic and head atraumatic Extremities: no cyanosis and no clubbing Skin: no rashes, warm and dry Psychiatric: A+Ox3, euthymic affect Results & Data Results & Data ([facility]) Vital Signs (Past 12 Hours) Vital Signs Temp Pulse Pulse Pulse Resp BP Pulse Ox 02/07/20 16:30 66 14 125/77 97 02/07/20 15:30 67 17 124/89 98 02/07/20 15:00 70 17 120/73 95 02/07/20 14:50 71 16 121/67 97 02/07/20 14:35 81 18 130/79 97 02/07/20 13:42 36.6 C 67 18 119/83 94 02/07/20 13:29 65 16 133/79 96 02/07/20 13:15 64 16 133/83 98 02/07/20 10:30 70 20 114/67 95 02/07/20 09:32 65 02/07/20 07:43 36.6 C 68 20 108/65 96 02/07/20 05:23 67 Resident Activity Tracking Resident Involvement: Resident Care Provided Care Provided: Adult Hospital Medicine (1) Chest pain Chest pain type: chest pain due to myocardial ischemia Ischemic chest pain type: unspecified angina pectoris type Qualified Code(s): I25.9 - Chronic ischemic heart disease, unspecified (2) Hypertension Hypertension type: unspecified Qualified Code(s): I10 - Essential (primary) hypertension
[2020-02-07] MEDS: ATORVASTATIN 40 MG TAB PO SCH (20:49)
[2020-02-08] MEDS: TICAGRELOR 90 MG TAB PO SCH ×3 (00:50→20:24)
--- NOTE | 2020-02-08 05:25 | Billing Data ---
Date of Service February 08, 2020 Coding Level of Care Code 47311 Initial Inpt Care Lvl 3
--- NOTE | 2020-02-08 05:26 | Electrocardiogram Report ---
Test Reason : Blood Pressure : / mmHG Vent. Rate : 066 BPM Atrial Rate : 066 BPM P-R Int : 166 ms QRS Dur : 074 ms QT Int : 406 ms P-R-T Axes : 037 027 074 degrees QTc Int : 425 ms Normal sinus rhythm Nonspecific ST abnormality Abnormal ECG No previous ECGs available Confirmed by Jorge A Guzmán ([id number]) on 02/08/2020 5:26:40 AM Referred By: REFERRED SELF Confirmed By:Jorge A Guzmán
--- NOTE | 2020-02-08 05:34 | Electrocardiogram Report ---
Test Reason : Blood Pressure : / mmHG Vent. Rate : 066 BPM Atrial Rate : 066 BPM P-R Int : 172 ms QRS Dur : 076 ms QT Int : 378 ms P-R-T Axes : 045 046 065 degrees QTc Int : 396 ms Normal sinus rhythm Nonspecific T wave abnormality Abnormal ECG When compared with ECG of 07-FEB-2020 02:10, ST no longer depressed in Lateral leads Nonspecific T wave abnormality now evident in Lateral leads Confirmed by Jorge A Guzmán ([id number]) on 02/08/2020 5:34:09 AM Referred By: REFERRED SELF Confirmed By:Jorge A Guzmán
[2020-02-08 07:43] LABS: Chol HDL Ratio 6; Cholesterol 198 mg/dl (0-200); HDL Cholesterol 33 mg/dl; LDL Cholesterol Calculated 122 mg/dl; Triglycerides 214 mg/dl (0-150); VLDL Cholesterol 43 mg/dl
[2020-02-08] MEDS: ASPIRIN 81 MG ECTAB PO SCH (08:22)
[2020-02-08] MEDS: METOPROLOL TARTRATE 25 MG TAB PO SCH ×2 (08:22→20:24)
--- NOTE | 2020-02-08 10:56 | Hospitalist Progress Note ---
Date of Service February 08, 2020 Assessment & Plan (1) Acute non-ST elevation myocardial infarction (NSTEMI): 49-year-old male with no significant past medical history presents with chest pain, found to have NSTEMI, status post PCI with drug-eluting stent placement. Acute NSTEMI PCI of proximal to mid LAD with drug-eluting stent Will require DAPT for at least 1 year Continue Brilinta 90 mg twice daily, aspirin 81 mg, Lipitor 40 mg, Lopressor 25 mg twice daily Cardiology consulted, recommend watching for another night following run of V. tach last night. Plan is to increase his beta-taras A1c within normal limits We will arrange outpatient follow-up with [facility] Hyperlipidemia, hypertriglyceridemia Triglycerides of 214, TC cholesterol 198, LDL 122, HDL 33 Statin therapy initiated yesterday, Continue outpatient follow-up Tobacco cessation Started cessation conversations yesterday Patient will start on Wellbutrin and follow-up with me in the clinic DVT prophylaxis encourage ambulation Dietheart healthy (2) Chest pain: (3) Elevated troponin: Otherwise healthy 49-year-old man with no past medical history who presented to the emergency department for new onset chest pain and was found to have an elevated troponin of 0.597. 1) Elevated Troponin in setting of acute chest pain - EKG normal, low concern for acute STEMI - received heparin bolus in ED - BMP normal, d-dimer negative - initial Troponin I of 0.597. Repeats ordered for 10 am and 6 pm. - calcium borderline low at 8.2, mag normal at 2.1 - daily EKG, ASA 81 in AM - cardiology consulted - no family hx cardiac disease, no personal hx of HTN or DM2. Patient is low risk for ACS. - pericarditis/myocarditis less likely with normal CBC, lack of URI sx, lack of pericardial rub or positional pain, recent use of diclofenac BID for toe pain - lipid panel, A1c ordered for AM 2) Elevated Liver Transaminases - ALT 121, AST 45, Alk Phos 34 - incidental finding; doesn't follow alcoholic hepatitis pattern, possible nonalcoholic fatty liver disease. - unlikely Hepatitis B or C with this transaminitis pattern and no hx IVDU - follow up outpatient with PCP DVT ppx: not indicated FEN/GI: NPO with sips/ice chips Code Status: Full Code Dispo: PCU (4) Hypertension: Admission and Anticipated Discharge Date Admission Date: February 07, 2020 Supervising Physician Co-Signing Physician Notes I supervised Dr. Deepa Jameson MD on this patient's care. I examined the patient today with the resident. I discussed the plan of care with the plan being as written in the note except for any following changes/exceptions: None. Patient feels well with no chest pain, but did have a 40 second run of VT on the monitor overnight. Discussed with cardiology who adjusted his beta-taras and will monitor him overnight. Subjective Doing well this morning, denies any chest pain or shortness of breath. He did not feel his run of V. tach last night. Is amendable to taking Wellbutrin for smoking cessation. Review of Systems Respiratory: no dyspnea Cardiovascular: no chest pain and no edema Neurologic: no headache(s) Physical Exam Constitutional: WD/WN, vitals as above Eyes: PERRL, conjunctivae normal, anicteric sclerae ENMT: Ears: no hearing impairment Nose: no external nose abnormality and no nasal discharge Mouth: no lip abnormality Neck: trachea midline, no thyromegaly Cardiovascular: Extremities: no edema Musculoskeletal: Head/Neck/Chest: normocephalic and head atraumatic Extremities: no cyanosis and no clubbing Skin: no rashes, warm and dry Psychiatric: A+Ox3, euthymic affect Results & Data Results & Data ([facility]) Vital Signs (Past 12 Hours) Vital Signs Temp Pulse Pulse Resp BP Pulse Ox 02/08/20 08:00 86 02/08/20 07:47 37.3 C 69 18 149/85 H 97 02/08/20 02:52 36.8 C 63 18 128/73 94 02/08/20 00:38 86 02/07/20 23:03 36.8 C 62 18 133/76 96 Resident Activity Tracking Resident Involvement: Resident Care Provided Care Provided: Adult Hospital Medicine (1) Chest pain Chest pain type: chest pain due to myocardial ischemia Ischemic chest pain type: unspecified angina pectoris type Qualified Code(s): I25.9 - Chronic ischemic heart disease, unspecified (2) Hypertension Hypertension type: unspecified Qualified Code(s): I10 - Essential (primary) hypertension
[2020-02-08] MEDS ORDERED: BuPROPion SR 150 MG TABCR PO SCH (11:15)
--- NOTE | 2020-02-08 12:23 | Billing Data ---
Date of Service February 08, 2020 Coding Level of Care Code 99474 Subseq Hosp Care Lvl 2
--- NOTE | 2020-02-08 12:36 | Cardiology Progress Note ---
Date of Service February 08, 2020 Assessment & Plan (1) Acute non-ST elevation myocardial infarction (NSTEMI): (2) Ventricular tachycardia: (3) CAD (coronary artery disease): (4) S/P coronary artery stent placement: (5) Dyslipidemia: (6) Hypertension: ASSESSMENT/PLAN: 1. Acute NSTEMI: s/p PCI of LAD and Cx. Troponin peaked at 3.35. Continue aspirin 81 mg daily indefinitely. Continue Brilinta for at least 1 year. Continue high-intensity statin therapy. Continue beta-taras. Initiate BALDO- inhibitor. Cardiac rehab recommended and discussed with him. He was agreeable. 2. CAD s/p LAD and Cx PCI: No further angina. Continue medical therapy as described above. Cardiac rehab. P.r.n. nitroglycerin on discharge. 3. Ventricular tachycardia: He had an episode of sustained ventricular tachycardia within the first 24 hours of PCI. Continue monitoring. Will increase metoprolol if heart rate can tolerate. 4. Hypertension: Blood pressure was initially hypertensive throughout hospital stay but has more recently been well controlled. Will initiate BALDO-inhibitor given CO. Beta-taras has been nauseated as above. 5. Dyslipidemia: LDL not optimized. High-intensity statin therapy. 6. Disposition: Cardiology will continue to follow. Plan of care discussed with primary hospitalist service, Dr. Rosalinda Jameson and Dr. Benito. Cardiology appointment scheduled for next week. Admission and Anticipated Discharge Date Admission Date: February 07, 2020 Subjective He denies angina. He denies shortness of breath, syncope, near-syncope, edema, or bleeding such as melena, hematochezia, or hematuria. He has not had any issues with his right radial cath site. He had questions today regarding diet, exercise, and cardiac rehab. Overnight he had an episode of sustained ventricular tachycardia. He was asymptomatic. He states that he was awake. Review of systems: As above. Physical Exam Physical Exam: Gen.: No acute distress. Alert and oriented. HEENT: Anicteric sclera. Neck: No JVD. Cardiac: Regular. Normal S1-S2. No murmurs, rubs, or gallops. Pulmonary: Clear to auscultation bilaterally without wheezes, rales, or rhonchi. Abdomen: Soft, nontender, nondistended, with normoactive bowel sounds. No bruits noted. Extremities: Right radial cath site is clean, dry, and intact without erythema or discharge. No edema or cyanosis. Psychiatric: Affect appears appropriate. Results & Data ([facility]) Vital Signs (Past 12 Hours) Vital Signs Temp Pulse Pulse Resp BP Pulse Ox 02/08/20 11:50 36.9 C 60 16 128/80 99 02/08/20 08:00 86 02/08/20 07:47 37.3 C 69 18 149/85 H 97 02/08/20 02:52 36.8 C 63 18 128/73 94 02/08/20 00:38 86 Laboratory Results Laboratory Results - last 24 hr 02/07/20 02/07/20 02/07/20 11:42 12:24 12:44 Activ Coag Time Kaolin 114 213 H 224 H Troponin I Triglycerides Cholesterol LDL Cholesterol, Calc VLDL Cholesterol, Calc HDL Cholesterol Cholesterol/HDL Ratio 02/07/20 02/07/20 02/08/20 13:02 17:58 06:48 Activ Coag Time Kaolin 235 H Troponin I 2.640 H* Triglycerides 214 H Cholesterol 198 LDL Cholesterol, Calc 122 VLDL Cholesterol, Calc 43 HDL Cholesterol 33 Cholesterol/HDL Ratio 6 Diagnostic Findings Telemetry personally reviewed: Predominantly sinus rhythm but did 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 The episode lasted approximately 42 seconds. Cardiac catheterization 02/07/2020: He was found to have severe CAD involving mid LAD and distal circumflex. He underwent PCI of mid LAD with 4 x 34 mm sabra OPAL. Distal circumflex underwent PCI with 2.25 x 18 mm sabra OPAL. Echo reviewed from 02/07/2020: Normal LV size. EF > 70%. No regional wall motion abnormalities. Mildly dilated RV with normal systolic function. No significant valvular abnormalities. Medications Administered Current Inpatient Medications Acetaminophen (Tylenol) 650 mg PO Q4H PRN PRN Reason: Pain or Fever Stop: 03/08/20 03:42 Last Admin: 02/07/20 08:18 Dose: 650 mg Documented by: Acetaminophen (Tylenol) 1,000 mg PO Q6H PRN PRN Reason: Pain Stop: 03/08/20 16:56 Aspirin (Ecotrin Ectab) 81 mg PO [facility] Stop: 03/08/20 08:59 Last Admin: 02/08/20 08:22 Dose: 81 mg Documented by: Atorvastatin Calcium (Lipitor) 40 mg PO HS [facility] Stop: 03/08/20 20:59 Last Admin: 02/07/20 20:49 Dose: 40 mg Documented by: Metoprolol Tartrate (Lopressor) 25 mg PO BID [facility] Stop: 03/08/20 11:29 Last Admin: 02/08/20 08:22 Dose: 25 mg Documented by: Morphine Sulfate (Morphine Sulfate) 2 mg IV Q30M PRN PRN Reason: Chest Pain Stop: 02/21/20 03:42 Nitroglycerin (Nitrostat) 0.4 mg SL PRN PRN PRN Reason: Chest Pain Stop: 03/08/20 13:11 Ondansetron HCl (Zofran) 4 mg IV Q6H PRN PRN Reason: Nausea Stop: 03/08/20 03:42 Last Admin: 02/07/20 13:01 Dose: 4 mg Documented by: Ondansetron HCl (Zofran Odt) 4 mg PO Q4H PRN PRN Reason: Nausea Stop: 03/08/20 16:58 Last Admin: 02/07/20 17:10 Dose: 4 mg Documented by: Ticagrelor (Brilinta) 90 mg PO BID [facility] Stop: 03/09/20 00:59 Last Admin: 02/08/20 08:22 Dose: 90 mg Documented by: PG Care Time/CCT Total # of Minutes Spent Total Time Spent with Patient: Total time spent is greater than 50% in coordination of care (as documented) at patient's floor/unit and/or counseling patient: Coding Level of Care Code 77835 Subseq Hosp Care Lvl 3 Diagnoses Acute non-ST elevation myocardial infarction (NSTEMI) I21.4 Ventricular tachycardia I47.2 CAD (coronary artery disease) I25.10 S/P coronary artery stent placement Z95.5 Dyslipidemia E78.5 Hypertension I10 Hypertension type: unspecified (1) Hypertension Hypertension type: unspecified Qualified Code(s): I10 - Essential (primary) hypertension
[2020-02-08] MEDS: lisinopriL 5 MG TAB PO SCH (14:13)
[2020-02-08] MEDS: ATORVASTATIN 40 MG TAB PO SCH (20:24)
--- NOTE | 2020-02-09 06:18 | Electrocardiogram Report ---
Test Reason : Blood Pressure : / mmHG Vent. Rate : 071 BPM Atrial Rate : 071 BPM P-R Int : 178 ms QRS Dur : 074 ms QT Int : 390 ms P-R-T Axes : 040 031 101 degrees QTc Int : 423 ms Normal sinus rhythm T wave abnormality, consider anterior ischemia Abnormal ECG When compared with ECG of 07-FEB-2020 08:06, T wave inversion now evident in Anterior leads Confirmed by Jorge A Guzmán ([id number]) on 02/09/2020 6:18:40 AM Referred By: REFERRED SELF Confirmed By:Jorge A Guzmán
[2020-02-09] MEDS: METOPROLOL TARTRATE 25 MG TAB PO SCH (08:02)
[2020-02-09] MEDS: TICAGRELOR 90 MG TAB PO SCH (08:02)
[2020-02-09] MEDS: ASPIRIN 81 MG ECTAB PO SCH (08:03)
[2020-02-09] MEDS: lisinopriL 5 MG TAB PO SCH (08:03)
--- NOTE | 2020-02-09 09:31 | Cardiology Progress Note ---
Date of Service February 09, 2020 Assessment & Plan (1) Acute non-ST elevation myocardial infarction (NSTEMI): (2) Ventricular tachycardia: (3) CAD (coronary artery disease): (4) S/P coronary artery stent placement: (5) Dyslipidemia: (6) Hypertension: ASSESSMENT/PLAN: 1. Acute NSTEMI: s/p PCI of LAD and Cx. Troponin peaked at 3.35. Continue aspirin 81 mg daily indefinitely. Continue Brilinta for at least 1 year. Continue high-intensity statin therapy. Continue beta-taras. Continue BALDO- inhibitor. Cardiac rehab intake next week while in the office. 2. CAD s/p LAD and Cx PCI: No angina but has not yet ambulated in the hallway. He was encouraged to do so before he leaves today. Continue medical therapy as described above. Cardiac rehab. P.r.n. nitroglycerin on discharge. We have discussed Mediterranean diet and regular cardiovascular exercise after he heals from his right radial access site. 3. Ventricular tachycardia: He had an episode of sustained ventricular tachycardia within the first 24 hours of PCI. Continue monitoring. Continue beta-taras. No further ventricular tachycardia. 4. Hypertension: Blood pressure mostly normotensive in the past 24 hours. Continue current regimen. 5. Dyslipidemia: LDL not optimized. High-intensity statin therapy. Monitor transaminase levels as an outpatient as they were elevated earlier this hospitalization prior to statin therapy. 6. Disposition: Cardiology follow-up has been scheduled in the office for late next week with cardiac rehab intake as well. Plan of care has been communicated to primary hospitalist service. Admission and Anticipated Discharge Date Admission Date: February 07, 2020 Subjective He feels well today. He denies chest pain, shortness of breath, syncope, near- syncope, palpitations, edema, or bleeding. He would like to go home. He has not yet ambulated in the hallway was encouraged to do so before discharge. Review of systems: As above. Physical Exam Physical Exam: Gen.: No acute distress. Alert and oriented. HEENT: Anicteric sclera. Neck: No JVD. Cardiac: Regular. No ectopy. Normal S1-S2. No murmurs, rubs, or gallops. Pulmonary: Clear to auscultation bilaterally without wheezes, rales, or rhonchi. Abdomen: Soft, nontender, nondistended, with normoactive bowel sounds. No bruits noted. Extremities: Right radial cath site is clean, dry, and intact without erythema or discharge. No edema or cyanosis. Psychiatric: Affect appears appropriate. Results & Data ([facility]) Vital Signs (Past 12 Hours) Vital Signs Temp Pulse Pulse Resp BP Pulse Ox 02/09/20 08:00 37.1 C 63 18 127/83 96 02/09/20 04:20 37.1 C 63 18 122/69 96 02/08/20 23:39 37.1 C 59 L 17 130/76 96 02/08/20 22:30 72 Intake & Output 02/07/20 02/08/20 02/09/20 02/10/20 06:59 06:59 06:59 06:59 Intake Total 54 / 54 1677.333 / 1677.333 740 / 740 Output Total 200 / 200 200 / 200 Balance 54 / 54 1477.333 / 1477.333 540 / 540 Weight 122.9 kg 122.3 kg 121.5 kg Diagnostic Findings Telemetry personally reviewed: Sinus rhythm. No further ventricular arrhythmia. There were 4 consecutive ventricular beats but not tachycardic. Medications Administered Current Inpatient Medications Acetaminophen (Tylenol) 650 mg PO Q4H PRN PRN Reason: Pain or Fever Stop: 03/08/20 03:42 Last Admin: 02/07/20 08:18 Dose: 650 mg Documented by: Acetaminophen (Tylenol) 1,000 mg PO Q6H PRN PRN Reason: Pain Stop: 03/08/20 16:56 Aspirin (Ecotrin Ectab) [facility] Stop: 03/08/20 08:59 Last Admin: 02/09/20 08:03 Dose: 81 mg Documented by: Atorvastatin Calcium (Lipitor) 40 mg PO HS [facility] Stop: 03/08/20 20:59 Last Admin: 02/08/20 20:24 Dose: 40 mg Documented by: Lisinopril (Zestril) 5 mg PO QAM [facility] Stop: 03/09/20 12:59 Last Admin: 02/09/20 08:03 Dose: 5 mg Documented by: Metoprolol Tartrate (Lopressor) 37.5 mg PO BID [facility] Stop: 03/09/20 20:59 Last Admin: 02/09/20 08:02 Dose: 37.5 mg Documented by: Morphine Sulfate (Morphine Sulfate) 2 mg IV Q30M PRN PRN Reason: Chest Pain Stop: 02/21/20 03:42 Nitroglycerin (Nitrostat) 0.4 mg SL PRN PRN PRN Reason: Chest Pain Stop: 03/08/20 13:11 Ondansetron HCl (Zofran) 4 mg IV Q6H PRN PRN Reason: Nausea Stop: 03/08/20 03:42 Last Admin: 02/07/20 13:01 Dose: 4 mg Documented by: Ondansetron HCl (Zofran Odt) 4 mg PO Q4H PRN PRN Reason: Nausea Stop: 03/08/20 16:58 Last Admin: 02/07/20 17:10 Dose: 4 mg Documented by: Ticagrelor (Brilinta) 90 mg PO BID [facility] Stop: 03/09/20 00:59 Last Admin: 02/09/20 08:02 Dose: 90 mg Documented by: PG Care Time/CCT Total # of Minutes Spent Total Time Spent with Patient: Total time spent is greater than 50% in coordination of care (as documented) at patient's floor/unit and/or counseling patient: Coding Level of Care Code 55128 Subseq Hosp Care Lvl 3 Diagnoses Acute non-ST elevation myocardial infarction (NSTEMI) I21.4 Ventricular tachycardia I47.2 CAD (coronary artery disease) I25.10 S/P coronary artery stent placement Z95.5 Dyslipidemia E78.5 Hypertension I10 Hypertension type: unspecified (1) Hypertension Hypertension type: unspecified Qualified Code(s): I10 - Essential (primary) hypertension
--- NOTE | 2020-02-09 11:48 | Discharge Summary ---
Date of Service February 09, 2020 Admission HPI Per Admitting Provider Patient is a 49-year-old male with no past medical history presenting to the emergency department this morning for acute onset chest pain. He states that approximately 10 PM last night he started to have some right-sided chest pain that radiated into his right neck and down his right arm. He thought that it was related to his back felt better after getting a massage and was able to go to sleep. At approximately 1 in the morning he rolled from his left to his right side in bed and found the chest pain to get excruciatingly worse to a 10 out of 10. Pain did not resolve on its own and at that point his called 911 for an ambulance. In the ambulance he received a nitro tab which he said helped bring the pain from a 10 out of 10 to a 6 out of 10. He describes the pain as a tight pressure in his chest that was squeezing his chest without radiation. He denies any blurry vision, headache, nausea, stomach pain that was occurring concurrently with the chest pain symptoms. He denies any recent URI symptoms, fevers, chills, sick contacts. He notes that he went golfing on Thursday and walked 9 miles without any shortness of breath or chest pain with the exertion. He has never had any episodes like this previously denies any family history of heart attack, stroke, heart failure, hypertension, diabetes. He denies having ever smoked or having ever used any IV drugs. He states that his alcohol use is sporadic but probably averages to a couple of beers 3 times a month. Admission Exam Per Admitting Provider Constitutional: well developed, well nourished and + obese; no acute distress Eyes: PERRL, conjunctivae normal, anicteric sclerae ENMT: external ear and nose normal, oropharynx normal Respiratory: normal respiratory effort, lungs clear to auscultation normal respiratory effort; no respiratory distress Auscultation: no crackles, no rales, no rhonchi and no wheezes Cardiovascular: RRR, no murmur, no edema Heart Sounds: no gallop and no murmur Extremities: normal capillary refill; no edema Gastrointestinal (Abdomen): Inspection/Auscultation: abdomen normal to inspection; abdomen not distended Percussion/Palpation: abdomen soft; abdomen nontender Skin: no rashes, warm and dry Principal Diagnosis NSTEMI Discharge Exam Constitutional WD/WN, vitals as above Eyes PERRL, conjunctivae normal, anicteric sclerae ENMT external ear and nose normal, oropharynx normal Neck trachea midline, no thyromegaly Respiratory normal respiratory effort; no respiratory distress and no labored breathing Musculoskeletal no cyanosis or clubbing, extremities motor strength 5/5 Skin no rashes, warm and dry Psychiatric A+Ox3, euthymic affect Discharge Data Allergies Allergy/AdvReac Type Severity Reaction Status Date / Time No Known Allergies Allergy Unverified 02/07/20 02:21 Consultations 02/07/20 03:43 Consult Cardiology Routine 02/07/20 04:55 ED Decision to Admit Stat 02/08/20 13:02 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 [facility] 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 Routine Procedures Performed Operation Date: 02/07/20 12:00 Actual Procedures p Cath, Left with Cors and Vent - Jorge A Caicedo MD s Cineradiography w/Routine Exam - Jorge A Caicedo MD s IVUS Coronary Single Vessel - Karan Matute MD p Drug Eluting Stent SGl Vessel - Karan Matute MD s Drug Eluting Stent each ADDTL Vessel - Karan Matute MD Ordered Studies 02/07/20 10:14 CL Cath Imgs for PACS use only Routine 02/07/20 10:39 CL IVUS Coronary Single Vessel Routine Hospital Course (1) Acute non-ST elevation myocardial infarction (NSTEMI): 49-year-old male with no significant past medical history presents with chest pain, found to have NSTEMI, status post PCI with drug-eluting stent placement. Acute NSTEMI PCI of proximal to mid LAD with drug-eluting stent Will require DAPT for at least 1 year Continue Brilinta 90 mg twice daily, aspirin 81 mg, Lipitor 40 mg, Lopressor 37.5 mg twice daily, Lisinopril 5mg (recommend checking BMP in approximately 1 week) Discussed lifestyle modifications at lengthpatient already endorses a pretty healthy lifestyle of frequent exercise. We discussed a number of diets to investigate and we discussed ways of getting more sustained aerobic exercise. Hyperlipidemia, hypertriglyceridemia triglycerides of 214, TC cholesterol 198, LDL 122, HDL 33 -Continue Atorvastatin, follow in outpatient Statin therapy initiated yesterday, Continue outpatient follow-up -A1c 5.4 Tobacco cessation Started cessation conversations Has had success with Wellbutrin in the past, quit for 2 years Initially holding off on initiating Wellbutrin therapy considering short run of V. tach the evening after stent placement. Wellbutrin theoretically could exacerbate tachyarrhythmia, but should be safe a couple weeks as his post CT risk of arrhythmia decreases. (2) Chest pain: (3) Elevated troponin: (4) Hypertension: Total Time Total Time Spent Total Time Spent (In Minutes): greater than 30 minutes Total Time Includes: Examination of the Patient, Discharge Planning, Medication Reconciliation and Communication With Other Providers Discharge Plan Discharge Items Patient Disposition: Home - Self-Care Reason For Visit: CHEST PAIN Discharge Diagnosis: NSTEMI Condition on Discharge: Good Activity: Per Instructions section Non-emergency contact: Primary Care Provider and Seismology Technical Officer Call non-emergency contact if: you have any medication questions and your symptoms worsen Follow-up/Referrals: Jorge A Caicedo MD [Physician] - 02/17/20 12:45 pm (FOLLOW UP WITH DR CAICEDO FEBRUARY 17, 2020 AT 12:45PM FOLLOW UP WITH YSABEL COURTNEY ON FEBRUARY 17, 2020 AT 1:15PM) Calvin Jean-Baptiste MD [Outside Practitioners] - 02/14/20 9:30 am (A follow up with your PCP office has been made for you on January, at 9:30am.) Diet: Heart Healthy Addtl Attending Provider Instructions: ACTIVITY RECOMMENDATIONS: Excess manipulation of the wrist should be avoided for the next 24-48 hours. * No lifting over 2 pounds (approximately a 1/2 gallon of milk) with the utilized arm for 24 hours. * No strenuous activity such as bowling or tennis for 3 days. * Keep the site of the procedure covered with a bandage for 24 hours. *You may shower the day after the procedure. Do not take a tub bath or submerge the puncture site in water for the next 3 days. *Do not operate any motorized equipment for 3 days. SPECIAL CARE INSTRUCTIONS: The site may be slightly bruised and sore following your procedure. Should any of the following occur, contact the DrHallie who performed your procedure. 1. Redness/inflammation, swelling, chills, or fever, or colored drainage at procedure site within 3-7 days after your procedure. 2. Coldness, discoloration, ongoing numbness, severe pain, or swelling. Expect mild tingling of hand and tenderness at the puncture site for up to three days. If this persists beyond three days, or other symptoms develop, notify the Dr. who performed your procedure. BLEEDING: If the procedure site on your wrist begins to bleed, do not panic 1. Place 1 or 2 fingers firmly just slightly above the insertion site to stop the bleeding. You may be able to feel your pulse as you hold pressure. 2. Lift your finger after 5 minutes to see if the bleeding has stopped. 3. Once the bleeding has stopped, gently wipe the wrist area clean with a bandage. * If the bleeding from your wrist does not stop after 10 minutes, or if there is a large amount of bleeding or spurting, call 911 (do not drive yourself to the hospital). SKIN IRRITATION: * You may experience some redness and/or swelling in the area where radiation was administered. If any skin irritation occurs, please contact your family physician. FOLLOW UP VISIT: Keep any scheduled doctor appointments. 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 Our process consultant put in a stent to open it and allow for blood flow. The goal moving forward is to prevent these blockages from recurring in your vessels. You have what is called coronary artery disease. There are number of reasons why people develop heart diseasegenetic component including family history of high blood pressure, high cholesterol, diabetes. In addition, unhealthy lifestyle, obesity, being sedentary and being a smoker can contribute to development of heart disease. In order to prevent, you needed to be on a number of medications. In your situation, you have a number of good things going for you in regards to lifestyle of course there are a few things that we could tweak. Below I have outlined the new medications that you have not started on and are preliminary lifestyle management recommendations: Aspirin and Brilinta you will be on a combination of these medications for at least 1 year. You will be on aspirin indefinitely. This will help the area around the stent from becoming clogged again. these are antiplatelet medications that stop clotting from occurring. They do put you at a higher risk for bleeding. Be aware of this and let your primary care doctor know if you develop any concerning symptoms such as bright red blood or dark black stools. We also recommend that you stop taking diclofenac or any other medications that are similar such as Advil, naproxen, Motrin. These medications will increase your risk for bleeding and also may worsen heart disease. As an alternative for pain control, we recommend doing Tylenol. You can safely take approximately 3000 mg of Tylenol per day. Atorvastatinthis medication is very important for controlling cholesterol, but for people that have coronary artery disease it also stabilizes the plaques in your vessels and make sure that they do not break off and flow into smaller vessels causing severe blockages. Lisinopril/metoprololthese medications have shown to have great benefit for people that have coronary artery disease. They will also control blood pressure which is a risk factor/contributor to coronary disease. Lifestyle managementwe are very impressed by your current physical activity. We advocate that you continue your current regimen with your golf routine. We recommend that you continue walking the course like you do. In addition, we think that sustained aerobic activity, such as jogging, bicycle riding or swimming for approximately 3-5 times per week for 30-minute intervals would be beneficial for you. In addition, we recommend looking at some dietary changes including a diet that is higher in unsaturated fats, lower in carbohydrates and rich in vegetables fruit and fiber. I would recommend looking up the [place] diet, the Mediterranean diet, the Dash diet. They all incorporated the recommendations that I mentioned above. We can continue this conversation when you follow-up with myself or another provider at [facility]. Tobacco cessationtobacco is a known carcinogen that can predominantly cause throat cancer. In addition, the nicotine and tobacco can cause significant increase in blood pressure, heart rate which over time can cause increased damage to the vessels. We can discuss quitting strategies when you see us in the clinic. We would consider starting you back on Wellbutrin which it sounds like you have had success with in the past. Pending Studies at Discharge: No Stand-Alone Forms: [facility], Smoking Cessation Medications and DC Order Prescriptions: New atorvastatin 40 mg Tablet 40 mg PO HS Qty: 30 RF: 3 Brilinta 90 mg Tablet 90 mg PO BID Qty: 60 RF: 3 lisinopril [Zestril] 5 mg Tablet 5 mg PO QAM 30 Days Qty: 30 RF: 3 metoprolol tartrate 25 mg Tablet 37.5 mg PO BID 30 Days Qty: 90 RF: 0 nitroglycerin [Nitrostat] 0.4 mg Tablet, Sublingual 0.4 mg sublingual PRN PRN (Reason: chest pain) Qty: 14 RF: 0 aspirin 81 mg tablet,delayed release (DR/EC) 81 mg PO DAILY Qty: 30 RF: 3 diclofenac sodium [Voltaren] 1 % gel 2 gm TOP QID PRN (Reason: pain) 30 Days Qty: 100 RF: 1 Discontinued diclofenac sodium 75 mg tablet,delayed release (DR/EC) 75 mg PO BID PRN (Reason: Pain) RF: 0 Discharge Orders: Discharge Order (Routine); Ordered 02/09/20 Ordered By: Alex Jameson Print Language: Lithuanian Admission Data Admit Date/Time: 02/07/20 11:56 Attending Provider: David Lyons Admit Provider: Albertina Robin Primary Care Provider: Ida Rivas Other Providers: Karan Bishop ; David Lyons Other Interventions: Discharge Summary Assessment (RN) Last Done: 02/09/20 09:52 DC Date/Time DO NOT enter until pt leaves facility: 02/09/20 10:20 Supervising Physician Co-Signing Physician Notes I personally examined the patient and verified all brooke points of history and exam, discussed case, and agree with decision making with Dr Jameson feeling good ready to go home. reiterated discussions of medications and lifestyle, reiterated importance of stopping tobacco. vitals noted nad heent nc at mmm breathing unlabored no accessory muscles good effort skin no rashes no pallor or icterus neuro no focal deficits good/normal gait, wrist puncture site appears healing well c/d/i. NSTEMI/CAD -risks - male/age/dyslipidemia (high non-HDL more than anything else)/tobacco abuse -med management - discussed med-by-med and risks/benefits/side effects (also discussed importance of getting BMP 1-2 weeks since new start on ACEi) -lifestyle (main things will be emphasis on cardio > weights, incorporating more fruits/vegetables into diet) -emphasized definite need for tobacco cessation short run of vtach >24hrs ago, beta taras increased, safe/stable for discharge per cardiology otherwise stable/safe for home as well - close PCP f/u, BMP 1-2wks, otherwise as above Resident Activity Tracking Resident Involvement: Resident Care Provided Care Provided: Adult Hospital Medicine
--- NOTE | 2020-02-09 13:06 | Billing Data ---
Date of Service February 07, 2020 Coding Level of Care Code 01737 Subseq Hosp Care Lvl 3
--- NOTE | 2020-02-09 13:06 | Billing Data ---
Date of Service February 09, 2020 Coding Level of Care Code D/C Day Management >30 mins
--- NOTE | 2020-02-09 22:45 | Electrocardiogram Report ---
Test Reason : Blood Pressure : / mmHG Vent. Rate : 075 BPM Atrial Rate : 075 BPM P-R Int : 170 ms QRS Dur : 074 ms QT Int : 384 ms P-R-T Axes : 044 037 135 degrees QTc Int : 428 ms Normal sinus rhythm T wave abnormality, consider anterior ischemia Abnormal ECG When compared with ECG of 08-FEB-2020 14:16, No significant change was found Confirmed by Jorge A Guzmán ([id number]) on 02/09/2020 10:46:05 PM Referred By: REFERRED SELF Confirmed By:Jorge A Guzmán
== END 2020-02-09 10:20 | disposition home or self-care (01) | DRG 247 ==
LOC: 2S 02:07 → ED 02:07 → SUATTDRO 03:44 → 2S 04:18 → SUATTDRO 11:56

== ENCOUNTER 2022-03-27 17:24 | Observation (INO) ==
[2022-03-27] MEDS ORDERED: dilTIAZem HCl 5 MG/ML 5 ML VIAL IV STA (17:47)
[2022-03-27] MEDS ORDERED: SODIUM CHLORIDE 0.9% 1000ML 1,000 ML IV STA (17:47)
--- NOTE | 2022-03-27 17:51 | Emergency Department Note ---
History of Present Illness General Chief complaint: Tachycardia Stated complaint: FAST HR, 2 STENTS, TINGLING IN LT ARM, LIGHHEADED Time Seen by Provider: 03/27/22 17:36 History of Present Illness 51-year-old male presents to the ED with a chief complaint of a sensation that his heart is racing or skipping a beat at times. His symptoms started around 10 AM when he was playing golf. He denies any other symptoms. No shortness of breath. No fevers or recent illness. No chest pains. He does have a history of CAD with stents in the LAD and the circumflex arteries. His loan workout officer is Dr. Guzmán. He takes a daily aspirin. He otherwise takes losartan and atorvastatin. No additional complaints at this time. Home Medications Medication Instructions Recorded Confirmed Type nitroglycerin 0.4 mg sublingual 0.4 mg SUBLINGUAL PRN PRN #14 tab 02/09/20 03/27/22 Rx tablet (Nitrostat) aspirin 81 mg tablet,delayed 81 mg PO DAILY #30 tab 06/10/21 03/27/22 Rx release atorvastatin 40 mg tablet 40 mg PO HS #90 tab 06/10/21 03/27/22 Rx losartan 25 mg tablet 25 mg PO DAILY #90 tab 06/10/21 03/27/22 Rx diclofenac sodium 75 mg 75 mg PO BID 03/27/22 03/27/22 History tablet,delayed release Allergies Allergy/AdvReac Type Severity Reaction Status Date / Time No Known Allergies Allergy Verified 03/27/22 18:45 Past Med/Surg History Medical History Acute non-ST elevation myocardial infarction (NSTEMI) Ankle arthritis CAD (coronary artery disease) 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 Dyslipidemia Hypertension Surgical History No significant past surgical history S/P coronary artery stent placement Social History Smoking Status: Never smoker Hx Alcohol Use: Yes Alcohol type: beer Hx Substance Use: No Preferred Language: Turkish Communication Ability: Effective Beliefs That Will Affect Care: None marital status: Current Living Situation: Spouse current occupational status: employed Feels Safe at Home: Yes Assistive Devices: None Review of Systems A total of 10 systems reviewed and were otherwise negative Physical Exam Vital Signs Vital Signs - 24 hr 03/27/22 17:31 03/27/22 17:50 03/27/22 18:00 Temperature 36.6 C Temperature Source Temporal Artery Scan Pulse Rate 76 122 H 109 H Respiratory Rate 17 16 15 Respiratory Effort / Characteristics Non-Labored Blood Pressure 110/62 Blood Pressure Mean 78 Pulse Oximetry 95 Oxygen Delivery Method Room Air Sepsis Recent Fever Within 48 Hours No Sepsis New/Unexplained Change in Mental Status N/A Sepsis Action Taken by Nursing No Action Required 03/27/22 18:02 03/27/22 18:08 03/27/22 18:10 Temperature Temperature Source Pulse Rate 106 H 73 77 Respiratory Rate 14 23 26 H Respiratory Effort / Characteristics Blood Pressure 108/72 107/68 Blood Pressure Mean 84 81 Pulse Oximetry Oxygen Delivery Method Sepsis Recent Fever Within 48 Hours Sepsis New/Unexplained Change in Mental Status Sepsis Action Taken by Nursing 03/27/22 18:20 03/27/22 18:30 Temperature Temperature Source Pulse Rate 78 69 Respiratory Rate 21 21 Respiratory Effort / Characteristics Blood Pressure 108/70 Blood Pressure Mean 82 Pulse Oximetry Oxygen Delivery Method Sepsis Recent Fever Within 48 Hours Sepsis New/Unexplained Change in Mental Status Sepsis Action Taken by Nursing CONSTITUTIONAL/VITAL SIGNS: Reviewed / noted above. GENERAL: Non-toxic in appearance. INTEGUMENTARY: Warm, dry, and Edith [place]ave. HEAD: Normocephalic. EYES: without scleral icterus or trauma. ENT/OROPHARYNX: clear and moist. LYMPHADENOPATHY/NECK: Is supple without lymphadenopathy or meningismus. RESPIRATORY: Clear to auscultation bilaterally. No increased work of breathing. CARDIOVASCULAR: Rapid rate and irregular rhythm. GI/ABDOMEN: Soft and nontender. No organomegaly or pulsatile mass. EXTREMITIES: Warm and well perfused. BACK: No CVA tenderness. NEUROLOGICAL: Intact without focal deficits. PSYCHIATRIC: normal affect. MUSCULOSKELETAL: Normally developed with good muscle tone. TRIAGE NURSING DOCUMENTATION REVIEWED. Course Administered Medications Discontinued Medications Diltiazem HCl (Diltiazem Hcl 5 Mg/Ml 5 Ml Vial) 25 mg IV NOW STA Stop: 03/27/22 17:48 Last Admin: 03/27/22 18:12 Dose: 25 mg Documented by: [id number] Cosigned by: [id number] Sodium Chloride (Nss 1000ml) 1,000 mls @ 999 mls/hr IV .Q1H1M STA Stop: 03/27/22 18:47 Last Admin: 03/27/22 18:12 Dose: 999 mls/hr Documented by: [id number] Medical Decision Making Differential Diagnosis The differential that was considered includes acute myocardial infarction, acute coronary syndrome, myocarditis, pericarditis, pericardial effusions /tamponade, esophageal perforation, thoracic aortic dissection, pulmonary embolism, pneumonia, pneumothorax Medical Records Attestation: I reviewed the patient's medical records. Home Medications Current Medication List: was personally reviewed by me Laboratory Data Attestation: I reviewed the patient's lab results. Result diagrams: 03/27/22 18:10 03/27/22 18:10 Lab Results 03/27/22 03/27/22 03/27/22 Range/Units 18:10 18:10 18:10 WBC 10.96 H (4.8-10.8) K/uL RBC 4.77 (4.7-6.1) M/uL Hgb 14.9 (14.0-18.0) g/dL Hct 42.4 (42-52) % MCV 88.9 (80-100) fL MCH 31.2 (25-34) pg MCHC 35.1 (32-36) g/dL RDW Std Deviation 40.9 (36.4-46.3) fL RDW Coeff of Joesph 12.6 (11.5-14.5) % Plt Count 309 (130-400) K/uL MPV 9.9 (7.4-10.4) fL Immature Gran % (Auto) 0.3 % Neut % (Auto) 62.0 % Lymph % (Auto) 29.2 % [place] % (Auto) 7.4 % Eos % (Auto) 0.8 % Baso % (Auto) 0.3 % Neut # (Auto) 6.80 H (1.4-6.5) K/uL Lymph # (Auto) 3.20 (1.2-3.4) K/uL [place] # (Auto) 0.81 H (0.11-0.59) K/uL Eos # (Auto) 0.09 (0-0.5) K/uL Baso # (Auto) 0.03 (0-0.2) K/uL Immature Gran # (Auto) 0.03 H (0.00-0.02) K/uL PT 11.3 (9.0-12.0) Seconds INR 1.1 (0.9-1.1) APTT 27.0 (21.0-31.0) Seconds PTT Ratio 1.0 Sodium 137 (136-145) mmol/L Potassium 3.8 (3.5-5.1) mmol/L Chloride 105 (98-107) mmol/L Carbon Dioxide 23 (21-32) mmol/L Anion Gap 9 (3-11) BUN 19 (6-23) mg/dl Creatinine 1.21 (0.6-1.4) mg/dl Est Cr Clr Drug Dosing 93.0 ml/min Est GFR ( Amer) 80.4 ml/min Est GFR (Non-Af Amer) 69.4 ml/min BUN/Creatinine Ratio 15.7 (10-20) Glucose 79 (70-99(Fasting)) mg/dl Calcium 9.4 (8.5-10.1) mg/dl Magnesium 2.2 (1.7-2.4) mg/dl Total Bilirubin 0.7 (0.2-1.0) mg/dl AST 36 (13-39) U/L ALT 39 (7-52) U/L Alkaline Phosphatase 27 L (34-104) U/L Troponin I High Sens 24.6 H (0-20) pg/ml Total Protein 7.4 (6.0-8.3) gm/dl Albumin 4.5 (3.4-5.0) gm/dl Globulin 2.9 (2.5-4.0) gm/dl Albumin/Globulin Ratio 1.6 (0.9-2) TSH (0.300-4.500) uIu/ml 03/27/22 Range/Units 18:10 WBC (4.8-10.8) K/uL RBC (4.7-6.1) M/uL Hgb (14.0-18.0) g/dL Hct (42-52) % MCV (80-100) fL MCH (25-34) pg MCHC (32-36) g/dL RDW Std Deviation (36.4-46.3) fL RDW Coeff of Joesph (11.5-14.5) % Plt Count (130-400) K/uL MPV (7.4-10.4) fL Immature Gran % (Auto) % Neut % (Auto) % Lymph % (Auto) % [place] % (Auto) % Eos % (Auto) % Baso % (Auto) % Neut # (Auto) (1.4-6.5) K/uL Lymph # (Auto) (1.2-3.4) K/uL [place] # (Auto) (0.11-0.59) K/uL Eos # (Auto) (0-0.5) K/uL Baso # (Auto) (0-0.2) K/uL Immature Gran # (Auto) (0.00-0.02) K/uL PT (9.0-12.0) Seconds INR (0.9-1.1) APTT (21.0-31.0) Seconds PTT Ratio Sodium (136-145) mmol/L Potassium (3.5-5.1) mmol/L Chloride (98-107) mmol/L Carbon Dioxide (21-32) mmol/L Anion Gap (3-11) BUN (6-23) mg/dl Creatinine (0.6-1.4) mg/dl Est Cr Clr Drug Dosing ml/min Est GFR ( Amer) ml/min Est GFR (Non-Af Amer) ml/min BUN/Creatinine Ratio (10-20) Glucose (70-99(Fasting)) mg/dl Calcium (8.5-10.1) mg/dl Magnesium (1.7-2.4) mg/dl Total Bilirubin (0.2-1.0) mg/dl AST (13-39) U/L ALT (7-52) U/L Alkaline Phosphatase (34-104) U/L Troponin I High Sens (0-20) pg/ml Total Protein (6.0-8.3) gm/dl Albumin (3.4-5.0) gm/dl Globulin (2.5-4.0) gm/dl Albumin/Globulin Ratio (0.9-2) TSH 3.176 (0.300-4.500) uIu/ml Imaging Data Radiologist's Impression: Chest X-Ray 03/27/22 17:48 XR chest 1V portable CLINICAL HISTORY: Dysrhythmia TECHNIQUE: Single frontal radiograph of the chest was obtained. Comparison: Comparison is made to chest radiograph 02/07/2020 FINDINGS: No lines and tubes are seen. The cardiomediastinal silhouette is normal. The lungs are clear. No evidence of pleural effusion or pneumothorax. IMPRESSION: No acute chest disease. ACT 112: Negative or not required by law. Electronically signed by: Kavon Keller M.D. 03/27/2022 6:25 PM ECG Data Attestation: I personally reviewed and interpreted this ECG as follows: Additional Comments: Twelve-lead EKG: Per my interpretation shows atrial fibrillation at a rate of 122. No ST elevation. No PVCs. Normal QTC. MDM Narrative 51-year-old male presents with a apparent acute onset of atrial fibrillation wi th RVR with a heart rate in the 120s started around 10 AM this morning. Vital signs here are stable. CBC and chemistry panel was unremarkable. Troponin is mildly elevated 24.6. Chest x-ray did not show acute disease. The patient was treated with IV Cardizem 25 mg and IV fluids 1 L. The patient will be seen by the hospitalist for further inpatient evaluation and care. The patient does take aspirin daily. He took it earlier today. He was started on heparin IV drip. Impression & Plan Atrial fibrillation, new onset, Atrial fibrillation with RVR, Elevated troponin Discharge Plan Visit Data Chief Complaint: Tachycardia Stated Complaint: FAST HR, 2 STENTS, TINGLING IN LT ARM, LIGHHEADED ED Provider: Nic Anne Discharge Problem: Atrial fibrillation, new onset, Atrial fibrillation with RVR, Elevated troponin Patient Disposition: Being Evaluated by Hospitalist Forms Stand Alone Forms: My [facility] Prescriptions Prescriptions: No Action aspirin 81 mg tablet,delayed release (DR/EC) 81 mg PO DAILY Qty: 30 RF: 3 atorvastatin 40 mg tablet 40 mg PO HS Qty: 90 RF: 3 losartan 25 mg tablet 25 mg PO DAILY Qty: 90 RF: 11 nitroglycerin [Nitrostat] 0.4 mg Tablet, Sublingual 0.4 mg sublingual PRN PRN (Reason: chest pain) Qty: 14 RF: 0 diclofenac sodium 75 mg tablet,delayed release (DR/EC) 75 mg PO BID RF: 0 Referrals Referrals: Ida Rivas CRNP [Primary Care Provider] -
[2022-03-27 18:23] LABS: Basophils # (auto) 0.03 K/uL (0-0.2); Basophils % (auto) 0.3 %; Eosinophils # (auto) 0.09 K/uL (0-0.5); Eosinophils % (auto) 0.8 %; Hematocrit (blood only) 42.4 % (42-52); Hemoglobin 14.9 g/dL (14.0-18.0); Immature Granulocytes # (auto) 0.03 K/uL (0.00-0.02); Immature Granulocytes % (auto) 0.3 %; Lymphocytes % (auto) 29.2 %; Mean Corpuscular Hemoglobin 31.2 pg (25-34); Mean Corpuscular Hgb Conc 35.1 g/dL (32-36); Mean Corpuscular Volume 88.9 fL (80-100); Mean Platelet Volume 9.9 fL (7.4-10.4); Monocytes # (auto) 0.81 K/uL (0.11-0.59); Monocytes % (auto) 7.4 %; Platelet Count 309 K/uL (130-400); RDW Coefficient of Variation 12.6 % (11.5-14.5); RDW Standard Deviation 40.9 fL (36.4-46.3); Red Blood Count 4.77 M/uL (4.7-6.1); White Blood Count 10.96 K/uL (4.8-10.8)
--- NOTE | 2022-03-27 18:26 | XRay Report ---
XR chest 1V portable CLINICAL HISTORY: Dysrhythmia TECHNIQUE: Single frontal radiograph of the chest was obtained. Comparison: Comparison is made to chest radiograph 02/07/2020 FINDINGS: No lines and tubes are seen. The cardiomediastinal silhouette is normal. The lungs are clear. No evid ence of pleural effusion or pneumothorax. IMPRESSION: No acute chest disease. ACT 112: Negative or not required by law. Electronically signed by: Kavon Keller M.D. 03/27/2022 6:25 PM
[2022-03-27 18:45] LABS: Albumin Globulin Ratio 1.6 (0.9-2); Albumin Level 4.5 gm/dl (3.4-5.0); BUN Creatinine Ratio 15.7 (10-20); Bilirubin,Total 0.7 mg/dl (0.2-1.0); Calcium 9.4 mg/dl (8.5-10.1); Est GFR (African American) 80.4 ml/min; Est GFR (Non-African American) 69.4 ml/min; Globulin 2.9 gm/dl (2.5-4.0); INR 1.1 (0.9-1.1); Magnesium 2.2 mg/dl (1.7-2.4); Potassium 3.8 mmol/L (3.5-5.1); Prothrombin Time 11.3 Seconds (9.0-12.0); Total Protein 7.4 gm/dl (6.0-8.3)
[2022-03-27 18:50] LABS: Troponin I High Sensitivity 24.6 pg/ml (0-20)
[2022-03-27] MEDS ORDERED: Heparin IV Adult Wt-Based Standard WITH Bolus Protocol IV STA (19:08)
--- NOTE | 2022-03-27 19:11 | History & Physical Report ---
Date of Service March 27, 2022 Assessment & Plan (1) Atrial fibrillation, new onset: Plan: Ceferino Hill is a 51yo male with PMHx significant for CAD (s/p OAPL x2 in 2019), HTN, dyslipidemia and h/o ventricular tachycardia who presented to [facility] ED on 03/27 for palpitations. New-onset Atrial Fibrillation, RVR resolved Palpitations started this AM, was a-fib RVR rate 122 bpm on arrival. Patient had NSTEMI 2 years ago with placement of OPAL x2; suspect remodeling is major inciting factor. - s/p Diltiazem 25mg IV x1; rates improved to 60s but remains in a-fib - start Metoprolol tartrate 12.5mg PO BID - consider transition to Toprol XL 25mg PO QAM tomorrow morning if tolerates tartrate well - started on Heparin gtt standard + bolus - CHADS-VASc score of 2 - patient is amenable to chronic anti-coagulation; will defer choice of DOAC to primary team tomorrow AM - TTE ordered - pending Elevated Troponin hsTroponin 24.6. No chest pain. EKG without ST/T changes. Suspect demand ischemia due to a-fib RVR. - will repeat now and again in AM - PRN EKG for chest pain CAD/HTN/HLD: s/p NSTEMI in 2019 with OPAL x2 done here. Continue baby Aspirin, Atorvastatin 40mg PO QHS, Losartan 25mg PO daily FEN/GI: heart-healthy diet DVT Prophylaxis: Heparin gtt Code Status: full code Disposition: med/tele (2) Elevated troponin: (3) Elevated troponin: (4) CAD (coronary artery disease): (5) Hypertension: (6) Dyslipidemia: Plan: Pt seen/examined in conjunction with resident MD Vin Tenorio. Orders and plan of admission formulated with resident. 51 Y/O M Hx HTN, HLD, CAD - stent x 2 2019, [place]. Presenting with palpitations. Rapid AF was noted on monitor on arrival to the ER. He has not had CP, SOB or lightheadedness. Rate responded well to a single dose of Diltiazem but did not convert to sinus rhythm. Labs were notable for a borderline trop. O/E General: AAO x 3, no distress ENT: No erythema or exudates, no thrush Eyes: STEVE, EOMI Head and neck: Normocephalic, atraumatic, No JVD, neck is supple. Chest/heart: Nontender, S1,2, irr, no murmurs, no gallops Lungs: CTAB, no wheezing or crackles Abdomen: Nontender, nondistended, BS+ Neuro: AAO x 3, speech is clear, no unilateral weakness or loss of sensation, coordination intact Musculoskeletal: No joint inflammation, muscle tenderness, FROM Skin: No acute rashes or ulcers Extremities: No clubbing, cyanosis, edema A/P 1) Rapid AF - rate is controlled. He was started on Heparin but can likely be placed on Eliquis for DC AM. Would add a beta taras as tolerated to his cu rrent meds considering CAD history. Echo and cardiology consult requested. 2) CAD - borderline trop is likely result of AF. No evidence of acute ischemia on EKG - he will continue ASA, statin and is fully anticoagulated. Trend trops. 3) HTN, HLD - cont Losartan although we may choose to reduce dose to allow for a beta taras or diltiazem. Cont statin. Total time for this admission including review of labs, meds, imaging, records, discussion with pt and ER attending - 45 min History of Present Illness Chief Complaint: tachycardia Primary Care Provider: EMILEE Mccray Ceferino Hill is a 51yo male with PMHx significant for CAD (s/p OPAL x2 in 2019), HTN, dyslipidemia and h/o ventricular tachycardia who presented to [facility] ED on 03/27 for palpitations that started this morning. Denies associated chest pain, syncope/near-syncope, SOB, N/V or diaphoresis. The palpitations continued until patient arrived in the ED and resolved after diltiazem. At time of onset of symptoms patient was resting without issues. Usually exercises daily without problems/palpitations/chest pain. Never had palpitations before. No new medications. Never smoker, infrequently drinks, and denies other drug use. In the ED the patient was in a-fib RVR 122bpm (new-onset, confirmed via EKG). Normotensive and not hypoxic. hsTroponin 24.6 (at 18:10). TSH WNL and CBC/CMP/Mg WNL. CXR unremarkable. Patient was given Diltiazem 25mg IV x1 and HR improved to 69; still a-fib. Also received 1L NSS bolus. Allergies Allergy/AdvReac Type Severity Reaction Status Date / Time No Known Allergies Allergy Verified 03/27/22 18:45 Home Medications Medication Instructions Recorded Confirmed Type nitroglycerin 0.4 mg sublingual 0.4 mg SUBLINGUAL PRN PRN #14 tab 02/09/20 03/27/22 Rx tablet (Nitrostat) aspirin 81 mg tablet,delayed 81 mg PO DAILY #30 tab 06/10/21 03/27/22 Rx release atorvastatin 40 mg tablet 40 mg PO HS #90 tab 06/10/21 03/27/22 Rx losartan 25 mg tablet 25 mg PO DAILY #90 tab 06/10/21 03/27/22 Rx diclofenac sodium 75 mg 75 mg PO BID 03/27/22 03/27/22 History tablet,delayed release Past Med/Surg History Medical History Acute non-ST elevation myocardial infarction (NSTEMI) Ankle arthritis CAD (coronary artery disease) 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 Dyslipidemia Hypertension Surgical History No significant past surgical history S/P coronary artery stent placement Social History Smoking Status: Never smoker Hx Alcohol Use: Yes Alcohol type: beer Hx Substance Use: No Preferred Language: Brazilian Communication Ability: Effective Beliefs That Will Affect Care: None marital status: Current Living Situation: Spouse current occupational status: employed Feels Safe at Home: Yes Assistive Devices: None Review of Systems Review of Systems: All systems reviewed & are unremarkable except as noted in HPI & below Physical Exam Physical Exam: General: A&Ox3. NAD. Cooperative. HEENT: Atraumatic, normocephalic. Pulm: CTAB A&P. -wheezes, -rales, -rhonchi. Symmetrical chest rise. No increase work of breathing. No respiratory distress. Cardiac: irregularly irregular rhythm, regular rate, -mrg. Radial pulses intact and symmetrical. No LE edema. Abdominal: soft, non-tender, non-distended, BS x 4 Skin: warm, dry, no rash Results & Data Results & Data ([facility]) Vital Signs (Past 12 Hours) Vital Signs Temp Pulse Resp BP Pulse Ox 06/30/22 18:30 69 21 108/70 03/27/22 18:20 78 21 03/27/22 18:10 77 26 H 03/27/22 18:08 73 23 107/68 03/27/22 18:02 106 H 14 108/72 03/27/22 18:00 109 H 15 03/27/22 17:50 122 H 16 03/27/22 17:31 36.6 C 76 17 110/62 95 Resident Activity Tracking Resident Involvement: Resident Care Provided Care Provided: Adult Hospital Medicine (1) Hypertension Hypertension type: unspecified Qualified Code(s): I10 - Essential (primary) hypertension
[2022-03-27] MEDS ORDERED: HEPARIN SOD (PORCINE) 1000 UNIT/ML IV ONE (19:23)
[2022-03-27] MEDS ORDERED: HEPARIN SODIUM/DEXTROSE 25,000 UNITS/500 ML BAG IV SCH (19:30)
[2022-03-27] MEDS ORDERED: ACETAMINOPHEN 325 MG TAB PO PRN (21:55)
[2022-03-27] MEDS ORDERED: ATORVASTATIN 40 MG TAB PO SCH (21:55)
[2022-03-27] MEDS ORDERED: NITROGLYCERIN SL 0.4 MG/TAB TAB SL PRN (21:55)
[2022-03-27] MEDS: METOPROLOL TARTRATE 25 MG TAB PO SCH (22:40)
[2022-03-28 02:31] LABS: Hematocrit (blood only) 40.7 % (42-52); Hemoglobin 13.7 g/dL (14.0-18.0); Mean Corpuscular Hemoglobin 29.9 pg (25-34); Mean Corpuscular Hgb Conc 33.7 g/dL (32-36); Mean Corpuscular Volume 88.9 fL (80-100); Mean Platelet Volume 9.8 fL (7.4-10.4); Platelet Count 287 K/uL (130-400); RDW Standard Deviation 41.6 fL (36.4-46.3); Red Blood Count 4.58 M/uL (4.7-6.1); White Blood Count 10.44 K/uL (4.8-10.8)
[2022-03-28 02:53] LABS: BUN Creatinine Ratio 15.8 (10-20); Calcium 8.7 mg/dl (8.5-10.1); Chol HDL Ratio 3.4 (0-5); Creatinine Clr Calc Pharmacy 99.5 ml/min; Est GFR (African American) 86.4 ml/min; Est GFR (Non-African American) 74.6 ml/min; Magnesium 2.1 mg/dl (1.7-2.4)
[2022-03-28 02:55] LABS: Troponin I High Sensitivity 20.8 pg/ml (0-20)
[2022-03-28 02:58] LABS: Partial Thromboplastin Ratio 3.8
[2022-03-28 02:59] LABS: Partial Thromboplastin Time 103.6 Seconds (21.0-31.0)
[2022-03-28 08:08] LABS: Estimated Average Glucose 108 mg/dl; Hemoglobin A1C 5.4 % (4.5-5.6)
[2022-03-28] MEDS: METOPROLOL TARTRATE 25 MG TAB PO SCH (08:39)
[2022-03-28] MEDS ORDERED: ASPIRIN 81 MG ECTAB PO SCH (09:00)
[2022-03-28] MEDS ORDERED: LOSARTAN POTASSIUM 25 MG TAB PO SCH (09:00)
--- NOTE | 2022-03-28 09:07 | XCELERA ---
[id number]
--- NOTE | 2022-03-28 09:20 | Electrocardiogram Report ---
Test Reason : Blood Pressure : / mmHG Vent. Rate : 065 BPM Atrial Rate : 065 BPM P-R Int : 192 ms QRS Dur : 086 ms QT Int : 400 ms P-R-T Axes : 047 060 020 degrees QTc Int : 416 ms Normal sinus rhythm Normal ECG When compared with ECG of 27-MAR-2022 17:40, Sinus rhythm has replaced Atrial fibrillation Vent. rate has decreased BY 57 BPM Confirmed by Soham Michaud ([id number]) on 03/28/2022 9:20:28 AM Referred By: REFERRED SELF Confirmed By:Soham Michaud
--- NOTE | 2022-03-28 09:53 | Cardiology Consultation ---
Date of Consultation March 28, 2022 Assessment & Plan (1) Atrial fibrillation with RVR: (2) CAD (coronary artery disease): (3) Hypertension: (4) Dyslipidemia: ASSESSMENT/PLAN: 1. Atrial fibrillation: He spontaneously converted to sinus rhythm last evening and has remained in sinus rhythm in the 60s. Since this is his first episode of the arrhythmia, recommend rate control strategy at this point. He self- discontinued metoprolol in the past due to erectile dysfunction, but he states that he is willing to try the medicine again. Would therefore recommend discharging him on metoprolol succinate 25 mg daily. If he is unable to tolerate metoprolol moving forward, would then consider initiating a calcium channel taras, but losartan may then have to be discontinued due to concern for hypotension. Antiarrhythmic therapy or ablation could also be considered in the future if he has more frequent, symptomatic episodes of the arrhythmia. He does have a CHADSVASc score of 2, therefore, anticoagulation therapy is indicated for stroke risk reduction. Agree with Eliquis 5 mg BID. 2. Coronary artery disease s/p NSTEMI and PCI of LAD/Cx:High sensitivity troponin is minimally elevated but flat. This appears secondary to demand ischemia from a fib with RVR. He denies angina. Continue aspirin 81 mg daily indefinitely given prior PCI. Continue high intensity statin therapy. 3. Hypertension: BP has been well controlled. Recommend metoprolol succinate 25 mg daily for rate control, as noted above. Continue losartan. 4. Dyslipidemia: Continue statin therapy. 5. Disposition: Patient is stable for discharge from a cardiac perspective. Recommend follow-up with cardiology within the next month as an outpatient. Patient will be moving out of the area in the near-future, though, so he may need to establish care with a new quality control auditor in his new location. Patient discussed with Dr. Guzmán. History of Present Illness Reason for Consultation: Atrial fibrillation Requesting Physician: Dr. Martinez History of Present Illness Mr. Hill is a very pleasant 51-year-old gentleman with a history significant for CAD, NSTEMI s/p LAD and circumflex PCI (02/07/20), and dyslipidemia who was admitted last evening with new onset atrial fibrillation. The patient states that he was golfing in a tournament yesterday, and around 10 am, he began to note palpitations described as a fluttering. He had no associated symptoms with the palpitations. He believed the palpitations were related to nerves regarding the tournament, so he continued to golf. When his symptoms continued throughout the day, he decided to go to the ER for further evaluation. He was noted to be in atrial fibrillation on ECG with a rate of 122 bpm. He was given a dose of IV diltiazem and initiated on PO metoprolol. He was also initiated on Heparin drip. He spontaneously converted to sinus rhythm around 9 pm last night. He is currently resting comfortably. He denies chest pain, shortness of breath, edema, lightheadedness, syncope, or near-syncope. He denies abnormal bleeding such as melena, hematochezia, or hematuria. He denies cerebrovascular symptoms. Past cardiovascular history: He was admitted to [facility] on 02/07/2020 with NSTEMI. He underwent cardiac catheterization on 02/07/2020 and was found to have severe LAD (likely culprit) and circumflex CAD. He underwent PCI of both coronary arteries. His peak troponin was 3.35. He had an episode of sustained ventricular tachycardia within the first 24 hours of PCI, which spontaneously resolved. Angina was described as substernal chest pressure and had occurred at rest. He has had the following studies/procedures: 1. Echo 02/07/2020: Normal LV size with hyperdynamic systolic function. EF > 70%. Normal wall motion. Moderate LVH. Mildly dilated RV with normal systolic function. No significant valvular abnormalities. Normal RVSP. 2. Cardiac catheterization 02/07/2020: Mid LMCA 20%. Early mid LAD 90-95%, involving small D1. Mid circumflex 20-30%. Distal circumflex 70%. Dominant RCA. Mid and distal RCA luminal irregularities up to 20-30%. LVEDP 8. No aortic stenosis.Proximal to mid LAD 4 x 34 mm sabra OPAL, post dilated with 4.5 NC. Distal circumflex 2.25 x 18 mm Sabra OPAL. Family history: No premature CAD. Social history: He is and lives with his and 2 daughters. He works at [employer] but has accepted a new position at [employer] and will be moving out of the area. No smoking. Occasional alcohol. Allergies Allergy/AdvReac Type Severity Reaction Status Date / Time No Known Allergies Allergy Verified 03/27/22 18:45 Home Medications Medication Instructions Recorded Confirmed Type nitroglycerin 0.4 mg sublingual 0.4 mg SUBLINGUAL PRN PRN #14 tab 02/09/20 03/27/22 Rx tablet (Nitrostat) aspirin 81 mg tablet,delayed 81 mg PO DAILY #30 tab 06/10/21 03/27/22 Rx release atorvastatin 40 mg tablet 40 mg PO HS #90 tab 06/10/21 03/27/22 Rx losartan 25 mg tablet 25 mg PO DAILY #90 tab 06/10/21 03/27/22 Rx diclofenac sodium 75 mg 75 mg PO BID 03/27/22 03/27/22 History tablet,delayed release Patient History Medical History Acute non-ST elevation myocardial infarction (NSTEMI) Ankle arthritis CAD (coronary artery disease) 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 Dyslipidemia Hypertension Surgical History No significant past surgical history S/P coronary artery stent placement Social History Smoking Status: Never smoker Hx Alcohol Use: Yes Alcohol type: beer Hx Substance Use: No Preferred Language: Tajik Communication Ability: Effective Beliefs That Will Affect Care: None marital status: Current Living Situation: Spouse current occupational status: employed Feels Safe at Home: Yes Assistive Devices: Cane Review of Systems Review of Systems: All systems reviewed & are unremarkable except as noted in Subjective Physical Exam Physical Exam: Constitutional: Alert, oriented, in no acute distress HEENT: Head is atraumatic and normocephalic. EOMs intact. Sclera non-icteric. Face is symmetric. No perioral cyanosis. Mucous membranes moist Neck: No appreciable JVD Pulmonary: Normal respiratory effort, clear to auscultation throughout Cardiac: Regular rate and rhythm, normal S1 and S2, no gallops, no rubs, no murmurs Extremities: No edema. No clubbing or cyanosis. Pulses 2+ and symmetric Abdomen: Normal bowel sounds, soft, non-tender, no abdominal masses palpated Skin: Normal skin color, turgor, and pigmentation. No rash or skin lesions Neurological: Oriented to person, place, and time Results & Data ([facility]) Vital Signs (Past 12 Hours) Vital Signs Temp Pulse Pulse Resp BP BP Pulse Ox 03/28/22 07:35 97.9 F 59 L 18 101/66 97 03/28/22 07:33 57 L 03/28/22 05:00 97.9 F 68 18 107/69 95 03/27/22 23:31 98.1 F 60 20 110/65 96 03/27/22 22:33 66 03/27/22 22:26 98.2 F 75 20 127/77 98 Laboratory Results Laboratory Results WBC 10.44 K/uL (4.8-10.8) 03/28/22 02:19 RBC 4.58 M/uL (4.7-6.1) L 03/28/22 02:19 Hgb 13.7 g/dL (14.0-18.0) L 03/28/22 02:19 Hct 40.7 % (42-52) L 03/28/22 02:19 MCV 88.9 fL (80-100) 03/28/22 02:19 MCH 29.9 pg (25-34) 03/28/22 02:19 MCHC 33.7 g/dL (32-36) 03/28/22 02:19 RDW Std Deviation 41.6 fL (36.4-46.3) 03/28/22 02:19 RDW Coeff of Joesph 13.0 % (11.5-14.5) 03/28/22 02:19 Plt Count 287 K/uL (130-400) 03/28/22 02:19 MPV 9.8 fL (7.4-10.4) 03/28/22 02:19 Immature Gran % (Auto) 0.3 % 03/27/22 18:10 Neut % (Auto) 62.0 % 03/27/22 18:10 Lymph % (Auto) 29.2 % 03/27/22 18:10 [place] % (Auto) 7.4 % 03/27/22 18:10 Eos % (Auto) 0.8 % 03/27/22 18:10 Baso % (Auto) 0.3 % 03/27/22 18:10 Neut # (Auto) 6.80 K/uL (1.4-6.5) H 03/27/22 18:10 Lymph # (Auto) 3.20 K/uL (1.2-3.4) 03/27/22 18:10 [place] # (Auto) 0.81 K/uL (0.11-0.59) H 03/27/22 18:10 Eos # (Auto) 0.09 K/uL (0-0.5) 03/27/22 18:10 Baso # (Auto) 0.03 K/uL (0-0.2) 03/27/22 18:10 Immature Gran # (Auto) 0.03 K/uL (0.00-0.02) H 03/27/22 18:10 PT 11.3 Seconds (9.0-12.0) 03/27/22 18:10 INR 1.1 (0.9-1.1) 03/27/22 18:10 APTT 103.6 Seconds (21.0-31.0) H* 03/28/22 02:19 PTT Ratio 3.8 03/28/22 02:19 Sodium 140 mmol/L (136-145) 03/28/22 02:19 Potassium 4.0 mmol/L (3.5-5.1) 03/28/22 02:19 Chloride 107 mmol/L (98-107) 03/28/22 02:19 Carbon Dioxide 27 mmol/L (21-32) 03/28/22 02:19 Anion Gap 6 (3-11) 03/28/22 02:19 BUN 18 mg/dl (6-23) 03/28/22 02:19 Creatinine 1.14 mg/dl (0.6-1.4) 03/28/22 02:19 Est Cr Clr Drug Dosing 99.5 ml/min 03/28/22 02:19 Est GFR ( Amer) 86.4 ml/min 03/28/22 02:19 Est GFR (Non-Af Amer) 74.6 ml/min 03/28/22 02:19 BUN/Creatinine Ratio 15.8 (10-20) 03/28/22 02:19 Glucose 94 mg/dl (70-99(Fasting)) 03/28/22 02:19 Estimat Average Glucose 108 mg/dl 03/28/22 02:19 Hemoglobin A1c 5.4 % (4.5-5.6) 03/28/22 02:19 Calcium 8.7 mg/dl (8.5-10.1) 03/28/22 02:19 Magnesium 2.1 mg/dl (1.7-2.4) 03/28/22 02:19 Total Bilirubin 0.7 mg/dl (0.2-1.0) 03/27/22 18:10 AST 36 U/L (13-39) 03/27/22 18:10 ALT 39 U/L (7-52) 03/27/22 18:10 Alkaline Phosphatase 27 U/L (34-104) L 03/27/22 18:10 Troponin I High Sens 20.8 pg/ml (0-20) H 03/28/22 02:19 Total Protein 7.4 gm/dl (6.0-8.3) 03/27/22 18:10 Albumin 4.5 gm/dl (3.4-5.0) 03/27/22 18:10 Globulin 2.9 gm/dl (2.5-4.0) 03/27/22 18:10 Albumin/Globulin Ratio 1.6 (0.9-2) 03/27/22 18:10 Triglycerides 123 mg/dl (0-150) 03/28/22 02:19 Cholesterol 113 mg/dl (0-200) 03/28/22 02:19 LDL Cholesterol, Calc 55 mg/dl 03/28/22 02:19 VLDL Cholesterol, Calc 25 mg/dl (0-30) 03/28/22 02:19 HDL Cholesterol 33 mg/dl 03/28/22 02:19 Cholesterol/HDL Ratio 3.4 (0-5) 03/28/22 02:19 TSH 3.176 uIu/ml (0.300-4.500) 03/27/22 18:10 SARS-CoV-2, RNA, NAAT NEGATIVE (NEGATIVE) 03/27/22 19:08 Diagnostic Findings Chest X-Ray 03/27/22: No acute chest disease. ECG 03/27/22: Atrial fibrillation with RVR of 122 bpm. ECG 03/28/22: Normal sinus rhythm at 65 bpm. Echo 03/28/22: Normal LV size, wall motion, and systolic function. EF 55-60%. Moderate concentric LVH. Mildly dilated RV with normal systolic function. Mild MR. Normal RVSP. No significant change from 02/07/20 study. Telemetry: Converted from atrial fibrillation to sinus rhythm lasting evening at 9:07 pm. Has since remained in sinus rhythm in the 60s. PG Care Time/CCT Total # of Minutes Spent Total Time Spent with Patient: Total time spent is greater than 50% in coordination of care (as documented) at patient's floor/unit and/or counseling patient: Coding Level of Care Code 41285 Inpt Consult Level 4 Diagnoses Atrial fibrillation with RVR I48.91 CAD (coronary artery disease) I25.10 Hypertension I10 Hypertension type: unspecified Dyslipidemia E78.5 (1) Hypertension Hypertension type: unspecified Qualified Code(s): I10 - Essential (primary) hypertension
[2022-03-28] MEDS ORDERED: APIXABAN 5 MG TABLET PO SCH (10:00)
[2022-03-28 10:09] LABS: Partial Thromboplastin Ratio 2.3
--- NOTE | 2022-03-28 10:13 | Hospitalist Progress Note ---
Date of Service March 28, 2022 Assessment & Plan (1) Atrial fibrillation, new onset: Plan: Ceferino Hill is a 51yo male with PMHx significant for CAD (s/p OPAL x2 in 2019), HTN, dyslipidemia and h/o ventricular tachycardia who presented to [facility] ED on 03/27 for palpitations. New-onset Atrial Fibrillation, RVR resolved: He is now back in normal sinus rhythm. He was started on metoprolol in the ED but he states he does not tolerate this medication since he had erectile dysfunction in the past with it. Appreciate cardiology consultation. Awaiting their recommendation whether to start diltiazem in place of metoprolol. Heparin drip has been switched over to Eliquis. Elevatedted Troponin hsTroponin 24.6. No chest pain. EKG without ST/T changes. Suspect demand ischemia due to a-fib RVR. - PRN EKG for chest pain CAD/HTN/HLD: s/p NSTEMI in 2019 with OPAL x2 done here. Continue baby Aspirin, Atorvastatin 40mg PO QHS, Losartan 25mg PO daily FEN/GI: heart-healthy diet DVT Prophylaxis: Heparin gtt Code Status: full code Disposition: Eventual discharge to home. Hopefully later today, March 28 (2) Elevated troponin: (3) CAD (coronary artery disease): (4) Hypertension: (5) Dyslipidemia: Plan: Pt seen/examined in conjunction with resident MD Vin Tenorio. Orders and plan of admission formulated with resident. 51 Y/O M Hx HTN, HLD, CAD - stent x 2 2019, [place]. Presenting with palpitations. Rapid AF was noted on monitor on arrival to the ER. He has not had CP, SOB or lightheadedness. Rate responded well to a single dose of Diltiazem but did not convert to sinus rhythm. Labs were notable for a borderline trop. O/E General: AAO x 3, no distress ENT: No erythema or exudates, no thrush Eyes: STEVE, EOMI Head and neck: Normocephalic, atraumatic, No JVD, neck is supple. Chest/heart: Nontender, S1,2, irr, no murmurs, no gallops Lungs: CTAB, no wheezing or crackles Abdomen: Nontender, nondistended, BS+ Neuro: AAO x 3, speech is clear, no unilateral weakness or loss of sensation, coordination intact Musculoskeletal: No joint inflammation, muscle tenderness, FROM Skin: No acute rashes or ulcers Extremities: No clubbing, cyanosis, edema A/P 1) Rapid AF - rate is controlled. He was started on Heparin but can likely be placed on Eliquis for DC AM. Would add a beta taras as tolerated to his current meds considering CAD history. Echo and cardiology consult requested. 2) CAD - borderline trop is likely result of AF. No evidence of acute ischemia on EKG - he will continue ASA, statin and is fully anticoagulated. Trend trops. 3) HTN, HLD - cont Losartan although we may choose to reduce dose to allow for a beta taras or diltiazem. Cont statin. Total time for this admission including review of labs, meds, imaging, records, discussion with pt and ER attending - 45 min Admission and Anticipated Discharge Date Admission Date: March 27, 2022 Subjective Alert and oriented. He is now in normal sinus rhythm. He is on metoprolol tartrate but he has not tolerated this in the past. Will await cardiology rec ommendations whether to switch to diltiazem. Heparin drip has been switched to Eliquis. He is anxious to go home later today, March 28 Review of Systems Review of Systems: Constitutional-no fever or chills ENT-no blurred vision, no double vision, no epistaxis, no sore throat Respiratory-no cough, no wheezing, no shortness of breath Cardiac-no palpitations, no chest pain, no syncope GI-no nausea, vomiting, diarrhea, melena, hematochezia -no urinary retention, no urinary incontinence, no dysuria, no hematuria Musculoskeletal-no joint pain, no muscle tenderness Skin-no bruising, no rashes, no pruritus Neuro-no isolated weakness, no paresthesia, no weakness Psych-no depression, no anxiety Physical Exam Physical Exam: General-alert and oriented x3, no fevers, no chills HEENT-head atraumatic and normocephalic, TMs intact bilaterally, pupils equal and reactive to light, extraocular muscles intact Neck-no lymphadenopathy or thyromegaly, trachea midline Chest-clear to auscultation percussion. No rales wheezing or rhonchi Cardiac-regular rate and rhythm, normal S1 and S2, no murmurs Abdomen-normal bowel sounds, nontender, no hepatosplenomegaly Extremities-no cyanosis, clubbing, or edema Neuro-cranial nerves II through XII intact, motor and sensory function within normal limits, strength symmetrical, no focal deficits Psych-normal affect, normal mood Results & Data Results & Data ([facility]) Vital Signs (Past 12 Hours) Vital Signs Temp Pulse Pulse Resp BP BP Pulse Ox 03/28/22 07:35 36.6 C 59 L 18 101/66 97 03/28/22 07:33 57 L 03/28/22 05:00 36.6 C 68 18 107/69 95 03/27/22 23:31 36.7 C 60 20 110/65 96 03/27/22 22:33 66 03/27/22 22:26 36.8 C 75 20 127/77 98 Laboratory Results 03/28/22 02:19 03/28/22 02:19 PG Care Time/CCT Total # of Minutes Spent Total Time Spent with Patient: Total time spent is greater than 50% in coordination of care (as documented) at patient's floor/unit and/or counseling patient: Coding Level of Care Code 47146 Subseq Hosp Care Lvl 3 Diagnoses Atrial fibrillation, new onset I48.91 Elevated troponin R79.89 CAD (coronary artery disease) I25.10 Hypertension I10 Hypertension type: unspecified Dyslipidemia E78.5 (1) Hypertension Hypertension type: unspecified Qualified Code(s): I10 - Essential (primary) hypertension
--- NOTE | 2022-03-28 10:19 | Electrocardiogram Report ---
Test Reason : Blood Pressure : / mmHG Vent. Rate : 122 BPM Atrial Rate : 131 BPM P-R Int : 000 ms QRS Dur : 072 ms QT Int : 254 ms P-R-T Axes : 000 035 024 degrees QTc Int : 361 ms Atrial fibrillation with rapid ventricular response Abnormal ECG When compared with ECG of 09-FEB-2020 08:43, Atrial fibrillation has replaced Sinus rhythm Vent. rate has increased BY 47 BPM T wave inversion no longer evident in Anterolateral leads Confirmed by Soham Michaud ([id number]) on 03/28/2022 10:18:58 AM Referred By: REFERRED SELF Confirmed By:Soham Michaud
[2022-03-28 10:27] LABS: Partial Thromboplastin Time 63.2 Seconds (21.0-31.0)
--- NOTE | 2022-03-28 10:37 | Discharge Summary ---
Date of Service March 28, 2022 Admission HPI Per Admitting Provider Ceferino Hill is a 51yo male with PMHx significant for CAD (s/p OPAL x2 in 2019), HTN, dyslipidemia and h/o ventricular tachycardia who presented to [facility] ED on 03/27 for palpitations that started this morning. Denies associated chest pain, syncope/near-syncope, SOB, N/V or diaphoresis. The palpitations continued until patient arrived in the ED and resolved after diltiazem. At time of onset of symptoms patient was resting without issues. Usually exercises daily without problems/palpitations/chest pain. Never had palpitations before. No new medications. Never smoker, infrequently drinks, and denies other drug use. In the ED the patient was in a-fib RVR 122bpm (new-onset, confirmed via EKG). Normotensive and not hypoxic. hsTroponin 24.6 (at 18:10). TSH WNL and CBC/CMP/Mg WNL. CXR unremarkable. Patient was given Diltiazem 25mg IV x1 and HR improved to 69; still a-fib. Also received 1L NSS bolus. Principal Diagnosis New onset atrial fibrillation with rapid ventricular rate, elevated troponin without acute coronary syndrome Discharge Exam General-alert and oriented x3, no fevers, no chills HEENT-head atraumatic and normocephalic, TMs intact bilaterally, pupils equal and reactive to light, extraocular muscles intact Neck-no lymphadenopathy or thyromegaly, trachea midline Chest-clear to auscultation percussion. No rales wheezing or rhonchi Cardiac-regular rate and rhythm, normal S1 and S2, no murmurs Abdomen-normal bowel sounds, nontender, no hepatosplenomegaly Extremities-no cyanosis, clubbing, or edema Neuro-cranial nerves II through XII intact, motor and sensory function within normal limits, strength symmetrical , no focal deficits Psych-normal affect, normal mood Discharge Data Allergies Allergy/AdvReac Type Severity Reaction Status Date / Time No Known Allergies Allergy Verified 03/27/22 18:45 Consultations 03/27/22 19:01 ED Decision to Admit Stat 03/28/22 07:33 Consult Cardiology Routine Hospital Course (1) Atrial fibrillation, new onset: Ceferino Hill is a 51yo male with PMHx significant for CAD (s/p OPAL x2 in 2019), HTN, dyslipidemia and h/o ventricular tachycardia who presented to [facility] ED on 03/27 for palpitations. New-onset Atrial Fibrillation, RVR resolved: He is now back in normal sinus rhythm. He was started on metoprolol in the ED but he states he does not tolerate this medication since he had erectile dysfunction in the past with it. Appreciate cardiology consultation. Metoprolol switched to diltiazem CD. Heparin drip has been switched over to Eliquis. Elevatedted Troponin hsTroponin 24.6. No chest pain. EKG without ST/T changes. Suspect demand ischemia due to a-fib RVR. No regional wall motion abnormality seen on cardiac echo. No evidence of acute coronary syndrome. CAD/HTN/HLD: s/p NSTEMI in 2019 with OPAL x2 done here. Continue baby Aspirin, Atorvastatin 40mg PO QHS, Losartan 25mg PO daily FEN/GI: heart-healthy diet DVT Prophylaxis: Heparin gtt Code Status: full code Disposition: discharge to home today, March 28 (2) Elevated troponin: (3) CAD (coronary artery disease): (4) Hypertension: (5) Dyslipidemia: Pt seen/examined in conjunction with resident MD Vin Tenorio. Orders and plan of admission formulated with resident. 51 Y/O M Hx HTN, HLD, CAD - stent x 2 2019, [place]. Presenting with palpitations. Rapid AF was noted on monitor on arrival to the ER. He has not had CP, SOB or lightheadedness. Rate responded well to a single dose of Diltiazem but did not convert to sinus rhythm. Labs were notable for a borderline trop. O/E General: AAO x 3, no distress ENT: No erythema or exudates, no thrush Eyes: STEVE, EOMI Head and neck: Normocephalic, atraumatic, No JVD, neck is supple. Chest/heart: Nontender, S1,2, irr, no murmurs, no gallops Lungs: CTAB, no wheezing or crackles Abdomen: Nontender, nondistended, BS+ Neuro: AAO x 3, speech is clear, no unilateral weakness or loss of sensation, coordination intact Musculoskeletal: No joint inflammation, muscle tenderness, FROM Skin: No acute rashes or ulcers Extremities: No clubbing, cyanosis, edema A/P 1) Rapid AF - rate is controlled. He was started on Heparin but can likely be placed on Eliquis for DC AM. Would add a beta taras as tolerated to his current meds considering CAD history. Echo and cardiology consult requested. 2) CAD - borderline trop is likely result of AF. No evidence of acute ischemia on EKG - he will continue ASA, statin and is fully anticoagulated. Trend trops. 3) HTN, HLD - cont Losartan although we may choose to reduce dose to allow for a beta taras or diltiazem. Cont statin. Total time for this admission including review of labs, meds, imaging, records, discussion with pt and ER attending - 45 min Total Time Total Time Spent Total Time Spent (In Minutes): 35 minutes Discharge Plan Discharge Items Reason For Visit: NEW-ONSET A-FIB Follow-up/Referrals: Ida Rivas CRNP [Primary Care Provider] - Medications and DC Order Prescriptions: No Action aspirin 81 mg tablet,delayed release (DR/EC) 81 mg PO DAILY Qty: 30 RF: 3 atorvastatin 40 mg tablet 40 mg PO HS Qty: 90 RF: 3 losartan 25 mg tablet 25 mg PO DAILY Qty: 90 RF: 11 nitroglycerin [Nitrostat] 0.4 mg Tablet, Sublingual 0.4 mg sublingual PRN PRN (Reason: chest pain) Qty: 14 RF: 0 diclofenac sodium 75 mg tablet,delayed release (DR/EC) 75 mg PO BID RF: 0 Admission Data Admit Date/Time: 03/27/22 19:58 Attending Provider: Butch Martinez Admit Provider: Delvin Tenorio Primary Care Provider: Ida Rivas Other Providers: Willy Morrow ; Riley Ellison ; Soham Michaud ; Elan De ; Kev Gomez ; Jackson Yung ; Anshu Boyer Jr ; Jorge A Guzmán ; Stephany Balderas ; Lou Fields ; Karan Matute ; Rangel Bishop ; Butch Torres ; Chelo Urbano ; Leyla Butcher ; Fletcher Bradley ; Dagoberto Wiley ; Ian Seay ; Kev Lucas V. Coding Level of Care Code D/C DAY MANAGEMENT >30 MINS Diagnoses Atrial fibrillation, new onset I48.91 Elevated troponin R79.89 CAD (coronary artery disease) I25.10 Hypertension I10 Hypertension type: unspecified Dyslipidemia E78.5
--- NOTE | 2022-03-28 10:40 | Discharge Summary ---
Date of Service March 28, 2022 Admission HPI Per Admitting Provider Ceferino Hill is a 51yo male with PMHx significant for CAD (s/p OPAL x2 in 2019), HTN, dyslipidemia and h/o ventricular tachycardia who presented to [facility] ED on 03/27 for palpitations that started this morning. Denies associated chest pain, syncope/near-syncope, SOB, N/V or diaphoresis. The palpitations continued until patient arrived in the ED and resolved after diltiazem. At time of onset of symptoms patient was resting without issues. Usually exercises daily without problems/palpitations/chest pain. Never had palpitations before. No new medications. Never smoker, infrequently drinks, and denies other drug use. In the ED the patient was in a-fib RVR 122bpm (new-onset, confirmed via EKG). Normotensive and not hypoxic. hsTroponin 24.6 (at 18:10). TSH WNL and CBC/CMP/Mg WNL. CXR unremarkable. Patient was given Diltiazem 25mg IV x1 and HR improved to 69; still a-fib. Also received 1L NSS bolus. Principal Diagnosis New onset atrial fibrillation with rapid ventricular rate, elevated troponin without acute coronary syndrome Discharge Exam General-alert and oriented x3, no fevers, no chills HEENT-head atraumatic and normocephalic, TMs intact bilaterally, pupils equal and reactive to light, extraocular muscles intact Neck-no lymphadenopathy or thyromegaly, trachea midline Chest-clear to auscultation percussion. No rales wheezing or rhonchi Cardiac-regular rate and rhythm, normal S1 and S2, no murmurs Abdomen-normal bowel sounds, nontender, no hepatosplenomegaly Extremities-no cyanosis, clubbing, or edema Neuro-cranial nerves II through XII intact, motor and sensory function within normal limits, strength symmetrical , no focal deficits Psych-normal affect, normal mood Discharge Data Allergies Allergy/AdvReac Type Severity Reaction Status Date / Time No Known Allergies Allergy Verified 03/27/22 18:45 Consultations 03/27/22 19:01 ED Decision to Admit Stat 03/28/22 07:33 Consult Cardiology Routine Hospital Course (1) Atrial fibrillation, new onset: Converted back to normal sinus rhythm with metoprolol. Cardiac echo reveals no regional wall motion abnormalities. Seen by cardiology. He has not tolerated metoprolol in the past. He is now on Cardizem CD. Heparin drip has been switched to oral Eliquis (2) Elevated troponin: No regional wall motion abnormality seen on cardiac echo. Suspect rate related demand ischemia causing troponin elevation Discharge home today, March 28 Total Time Total Time Spent Total Time Spent (In Minutes): 35 minutes Discharge Plan Discharge Items Reason For Visit: NEW-ONSET A-FIB Discharge Diagnosis: New onset atrial fibrillation with rapid ventricular rate. Elevated troponin without acute coronary syndrome Activity: Resume your previous activity Non-emergency contact: Primary Care Provider and Orderly Call non-emergency contact if: you have any medication questions and your symptoms worsen Follow-up/Referrals: Ida Rivas CRNP [Primary Care Provider] - Diet: Heart Healthy Addtl Attending Provider Instructions: Diltiazem CD and Eliquis have been added. Losartan has been discontinued Pending Studies at Discharge: No Stand-Alone Forms: Mosec, Mobile Secretary, Smoking Cessation Medications and DC Order Prescriptions: New diltiazem HCl 180 mg Capsule,Extended Release 24hr 180 mg PO QAM Qty: 30 RF: 0 Eliquis 5 mg Tablet 5 mg PO BID Qty: 60 RF: 0 Continued aspirin 81 mg tablet,delayed release (DR/EC) 81 mg PO DAILY Qty: 30 RF: 3 atorvastatin 40 mg tablet 40 mg PO HS Qty: 90 RF: 3 nitroglycerin [Nitrostat] 0.4 mg Tablet, Sublingual 0.4 mg sublingual PRN PRN (Reason: chest pain) Qty: 14 RF: 0 diclofenac sodium 75 mg tablet,delayed release (DR/EC) 75 mg PO BID RF: 0 Discontinued losartan 25 mg tablet 25 mg PO DAILY Qty: 90 RF: 11 Admission Data Admit Date/Time: 03/27/22 19:58 Attending Provider: Butch Martinez Admit Provider: Delvin Tenorio Primary Care Provider: Ida Rivas Other Providers: Willy Morrow ; Riley Ellison ; Soham Michaud ; Elan De ; Kev Gomez ; Jackson Yung ; Anshu Boyer Jr ; Jorge A Guzmán ; Stephany Balderas ; Lou Fields ; Karan Matute ; Rangel Bishop ; Butch Torres ; Chelo Urbano ; Leyla Butcher ; Fletcher Bradley ; Dagoberto Wiley ; Ian Seay ; Kev Lucas V. Coding Level of Care Code D/C DAY MANAGEMENT >30 MINS Diagnoses Atrial fibrillation, new onset I48.91 Elevated troponin R77.8
[2022-03-29] MEDS ORDERED: dilTIAZem HCL 180 MG CAPCR PO SCH (09:00)
== END 2022-03-28 12:35 | disposition home or self-care (01) ==
LOC: ED 17:24 → INTOOBSV 19:58 → 2N 19:58 → SUATTDRO 19:58 → 2N 20:41